=== PATIENT | female | born 1950 | race Caucasian/White ===

== ENCOUNTER 2020-02-25 15:56 | Outpatient (CLI) | payer MEDICARE, SELFPAY ==
--- NOTE | ~2020-02-25 | MM_ITS ---
EXAMINATION: MM screening [facility] BI w garo HISTORY: Screening mammogram TECHNIQUE: Craniocaudal and mediolateral oblique 3-D tomosynthesis images were obtained and synthetic 2-D images were generated. CAD analysis was submitted and interpreted. COMPARISON: [id number] 08/08/2017, 06/17/2016 BREAST PARENCHYMAL COMPOSITION: There are scattered areas of fibroglandular density. FINDINGS: There is no evidence of suspicious mass, calcification, or architectural distortion to sugg est malignancy in either breast. There has been no suspicious interval change. IMPRESSION: 1. No mammographic evidence of malignancy. 2. Recommend routine screening mammography in one year. BI-RADS Category 1: Negative Reviewed, dictated and finalized at location A.
== END 2020-02-25 15:57 | disposition home or self-care (01) ==
PROVIDERS: PCP Nurse Practitioner Family; Visit Provider Nurse Practitioner Family
DX: Z12.31 Encounter for screening mammogram for malignant neoplasm of breast (principal)
CPT/HCPCS: 77063; 77067

== ENCOUNTER 2021-07-06 10:45 | Outpatient (CLI) | payer MEDICARE, SELFPAY ==
--- NOTE | ~2021-07-06 | MM_ITS ---
EXAMINATION: MM screening [facility] BI w garo HISTORY: Screening mammogram TECHNIQUE: Craniocaudal and mediolateral oblique 3-D tomosynthesis images were obtained and synthetic 2-D images were generated. CAD analysis was submitted and interpreted. COMPARISON: 02/25/2020, 01/21/2019, 08/08/2017 BREAST PARENCHYMAL COMPOSITION: There are scattered areas of fibroglandular density. FINDINGS: There is no evidence of suspicious mass, calcification, or architectural distortion to sugg est malignancy in either breast. There has been no suspicious interval change. IMPRESSION: 1. No mammographic evidence of malignancy. 2. Recommend routine screening mammography in one year. BI-RADS Category 1: Negative Reviewed, dictated and finalized at location A. 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
== END 2021-07-06 10:46 | disposition home or self-care (01) ==
LOC: ANHIMG 10:48
PROVIDERS: PCP Nurse Practitioner Family; Visit Provider Nurse Practitioner Family
DX: Z12.31 Encounter for screening mammogram for malignant neoplasm of breast (principal)
CPT/HCPCS: 77063; 77067

== ENCOUNTER 2022-07-09 17:26 | Inpatient (IN) | payer MEDICARE, SELFPAY ==
--- NOTE | ~2022-07-09 | XR_ITS ---
XR surgery orthopedic 07/11/2022 13:06 Indication: Right hip pinning. Procedure: 2 fluoroscopic images of the right hip. 5 minutes 41 seconds of fluoroscopy time. Comparison: 07/09/2022 Findings: There are 3 screws transfixing the right femoral subcapital fracture which remains in stabl e alignment. No significant soft tissue abnormality. Impression: 1: Stable alignment of right femoral subcapital fracture status post internal fixation with 3 femoral neck screws. Reviewed, dictated and finalized at location A. LLMENT SERVICES VICE PRESIDENT Impression: 1: Stable alignment of right femoral subcapital fracture status post internal f ixation with 3 femoral neck screws.
--- NOTE | ~2022-07-09 | XR_ITS ---
EXAMINATION: XR chest 1V portable Exam Date/Time: 07/09/2022 18:40 DIGITAL ANALYST HISTORY: R hip fx, pre-op Comparison: 11/05/2008. RESULT: Lines, tubes, and devices: None. Lungs and pleura: Clear. Cardiomediastinal silhouette: Mild arch ectasia, accentuated by mild rotation, otherwise stable. Other: No acute osseous or upper abdominal finding. IMPRESSION: No acute cardiopulmonary process. Reviewed, dictated and finalized at location K. TAL ANALYST
--- NOTE | ~2022-07-09 | XR_ITS ---
EXAM: XR ankle RT 2V DATE: 07/10/2022 12:33 HISTORY: Right ankle pain after fall . COMPARISON: None available. FINDINGS: Decreased mineralization. No fracture or dislocation. No lytic or blastic lesion. Joint sp aces are maintained. Plantar enthesopathy No erosion or periosteal change. Soft tissues within normal limits. IMPRESSION: No acute osseous finding in the right ankle. Reviewed, dictated and finalized at location K. RHANGER SUPERVISOR
--- NOTE | ~2022-07-09 | XR_ITS ---
EXAM: XR hip RT 2V w AP pelvis DATE: 07/09/2022 17:43 HISTORY: FALL OVER BABY GATE, LT HIP PAIN RADIATES DOWN LEG . COMPARISON: None available. FINDINGS: Intact cannulated screws in the left hip. Normal mineralization. Subcapital right femoral neck fracture. No lytic or blastic lesion. Degenerative changes in the lower lumbar spine and bilater al hips. No erosion or periosteal change. Soft tissues within normal limits. IMPRESSION: Subcapital right femoral neck fracture. Reviewed, dictated and finalized at location K. RETORT OPERATOR
[2022-07-09 17:20] VITALS: BP 138/85; PULSE 91; RESP 16; TEMP 36.9; O2SAT 96
--- NOTE | 2022-07-09 18:05 | ED.LOWEXIN ---
HPI - Extremity Injury (Lower) General Chief Complaint: Extremity Injury, Lower <INES Brice Last Filed: 07/09/22 20:24> Stated Complaint: FALL HIP PAIN <INES Brice Last Filed: 07/09/22 20:24> Time Seen by Provider: 07/09/22 17:32 <INES Brice Last Filed: 07/09/22 20:24> Source: patient <INES Brice Last Filed: 07/09/22 20:24> Mode of arrival: EMS <INES Brice Last Filed: 07/09/22 20:24> Limitations: no limitations <INES Brice Last Filed: 07/09/22 20:24> History of Present Illness HPI Narrative: Patient is a 71 y/o female who presents to the ED via EMS with c/o R hip pain. Patient reports she tripped and fell over a baby gate yesterday while visiting family in [place]. She landed onto her right hip. Denied any head injury or LOC. She was able to ambulate afterwards, but had pain with this. She assumed she just bruised her hip. Today, she had increasing pain, difficulty ambulating, getting throughout her house. EMS was then called. Patient denies any numbness, tingling. History of previous left hip repair 2020, which was performed in [place]. <INES Brice Last Filed: 07/09/22 20:24> Related Data Home Medications: Home Medications Medication Instructions Recorded Confirmed alprazolam 0.5 mg tablet 0.5 mg PO QHS PRN 09/01/21 09/01/21 fluoxetine 20 mg capsule 20 mg PO DAILY 09/01/21 09/01/21 levothyroxine 88 mcg capsule 88 mcg PO DAILY 09/01/21 09/01/21 loratadine 10 mg tablet (Claritin) 10 mg PO DAILY 09/01/21 09/01/21 pantoprazole 40 mg tablet,delayed 40 mg PO QAM 09/01/21 09/01/21 release pravastatin 20 mg tablet 20 mg PO DAILY 09/01/21 09/01/21 zolpidem 5 mg tablet 5 mg PO QHS PRN 09/01/21 09/01/21 <Crystal Santiago PA-C - Last Filed: 07/09/22 20:24> Allergies/Adverse Reactions: Allergies Allergy/AdvReac Type Severity Reaction Status Date / Time No Known Allergies Allergy Mild Verified 10/27/21 12:56 <Crystal Santiago PA-C - Last Filed: 07/09/22 20:24> Review of Systems Review of Systems: CONSTITUTIONAL: Denies fever, chills, or sweats. CARDIOVASCULAR: Denies chest pain. RESPIRATORY: Denies dyspnea. GASTROINTESTINAL: Denies abdominal pain, nausea, vomiting. MUSCULOSKELETAL: Reports R hip pain. NEUROLOGIC: Denies HI, LOC, headache, numbness, or weakness. <Crystal Santiago PA-C - Last Filed: 07/09/22 20:24> All systems reviewed & are unremarkable except as noted in HPI and below <Crystal Santiago PA-C - Last Filed: 07/09/22 20:24> [facility] Past Medical History Medical History: Medical History (Updated 07/09/22 @ 19:06 by Crystal Santiago PA-C) Anxiety Asthma GERD (gastroesophageal reflux disease) HLD (hyperlipidemia) Thyroid disorder <Crystal Santiago PA-C - Last Filed: 07/09/22 20:24> Surgical History Surgical History: Surgical History History of femur fracture February 2021 pinning left femoral neck fracture in [place] History of surgery on left wrist ORIF 2007 <Crystal Santiago PA-C - Last Filed: 07/09/22 20:24> Family History Family History: Family History Other Heart disease <Crystal Santiago PA-C - Last Filed: 07/09/22 20:24> Social History Social History: Social History 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
--- NOTE | 2022-07-09 18:21 | ECG_ITS ---
Measurements Intervals [place] Rate: 78 P: 27 CA: 159 QRS: 28 QRSD: 86 T: 48 QT: 353 QTc: 404 Interpretive Statements SINUS RHYTHM BASELINE ARTIFACT- I, II, III, AVR, AVL, AVF, V1 NORMAL ECG NO PREVIOUS ECG AVAILABLE FOR COMPARISON Electronically Signed On 07-09-2022 22:08:09 JUICE BAR TEAM MEMBER by Manny Marroquin D.O.
[2022-07-09] MEDS: MORPHINE SULFATE (*CRX) 2 MG/ML INJ IV PUSH (18:24)
[2022-07-09] MEDS: ONDANSETRON INJ 4 MG/2 ML VIAL IV PUSH (18:24)
[2022-07-09 18:41] LABS: Basophils Percent Auto 0.4 % (0.2-1.2); Eosinophils Absolute Auto 0.2 K/mm3 (0-0.3); Hematocrit 35.6 % (37.0-47.0); Hemoglobin 11.8 g/dL (12.0-15.0); Immature Granulocyte Absolute 0.04 K/mm3 (0.00-0.031); Immature Granulocyte Percent A 0.4 % (0-0.5); Lymphocytes Absolute Auto 1.54 K/mm3 (0.9-3.2); Lymphocytes Percent Auto 14.2 % (18.3-44.2); Mean Corpuscular HGB Conc 33.1 g/dl (32-36); Mean Corpuscular Hemoglobin 30.7 pg (26-34); Mean Corpuscular Volume 92.7 fl (80-100); Mean Platelet Volume 10.1 fl (7.4-10.4); Monocytes Absolute Auto 0.8 K/mm3 (0.1-0.6); Monocytes Percent Auto 7.5 % (2.6-8.5); Neutrophils Absolute Auto 8.2 K/mm3 (1.3-6.7); Neutrophils Percent Auto 75.5 % (45.5-73.1); Platelet Count Result 176 k/mm3 (150-375); Red Blood Count 3.84 M/mm3 (4.2-5.4); Red Cell Distribution Width 12.3 % (11.5-14.5); White Blood Count 10.8 K/mm3 (4.5-10.0)
[2022-07-09 18:51] LABS: Alanine Aminotransferase 24 U/L (6-35); Albumin Level 3.8 g/dL (3.5-5.1); Alkaline Phosphatase 65 U/L (38-126); Anion Gap 7 mmol/L (8-16); Aspartate Amino Transferase 28 U/L (14-36); Bilirubin,Total 1.3 mg/dL (0.2-1.3); Blood Urea Nitrogen 13 mg/dL (7-17); Calcium 8.4 mg/dL (8.4-10.2); Carbon Dioxide 26 mmol/L (22-30); Chloride 105 mmol/L (98-107); Estimated CRCL calculation 50 ml/min; Estimated Glomerular Filt Rate > 60; Glucose 107 mg/dL (65-110); Potassium 3.6 mmol/L (3.4-5.0); Sodium 138 mmol/L (137-145)
[2022-07-09 18:52] LABS: INR 1.1; Prothrombin Time 13.8 Seconds (11.1-14.7)
[2022-07-09 18:53] LABS: Partial Thromboplastin Time 29.2 SECONDS (22.3-36.8)
--- NOTE | 2022-07-09 19:05 | PM.IMHP ---
H&P: HPI History of Present Illness Date/Time: 07/09/22 19:05 Chief Complaint: Right hip pain Narrative: This is a 71-year-old female patient who has a history of anxiety came to the emergency room with complaints of right hip pain. The patient was in [place] yesterday when she was trying to get over a baby gate when she fell and landed on her right hip. She was having difficulty ambulating but was still able to afterwards. However the pain was severe. She assumed that she just bruised her right hip. Today she had increased pain and difficulty ambulating. The patient was not able to ambulate through house. EMS was activated. She has a history of having a previous left hip repair in 2020 in [place]. X-ray of the hip and pelvis was read as a subcapital right femoral neck fracture. Dr. Lucia has been consulted. She was given Zofran and morphine in the emergency room. Her white count was noted to be 10.8. Her H&H is 11.8 and 35.6. She was found to be negative for influenza A/B and COVID. Her alcohol level was less than 10. The patient is being admitted to observation status on the date of service of 07/09/2022. Review of Systems Review of Systems: See HPI All systems reviewed & are unremarkable except as noted in HPI and below Constitutional: Constitutional: Reports as per HPI and Reports no additional constitutional complaints Eyes: Eyes: Reports as per HPI and Reports no additional eye complaints ENT: Reports system reviewed and no additional complaints, except as documented and Reports Normal hearing present Cardiovascular: Cardiovascular: Reports no additional cardiovascular complaints Respiratory: Respiratory: Reports no additional respiratory complaints and Reports no additional respiratory complaints Gastrointestinal: Gastrointestinal: Reports as per HPI and Reports no additional gastrointestinal complaints Musculoskeletal: Musculoskeletal: Reports no additional musculoskeletal complaints Integumentary/Breasts: Skin/Breast: Reports system reviewed and no additional complaints, except as docu and Reports as per HPI Neurologic: Reports system reviewed and no additional complaints, except as documented, Reports as per HPI and Reports Normal hearing present Psychiatric: Psychiatric: Reports no additional psychiatric complaints and Reports as per HPI Endocrine: Endocrine: Reports no additional endocrine complaints Hematologic/Lymphatic: Hematologic/Lymphatic: Reports no additional hematologic/lymphatic complaints Allergic/Immunologic: Allergic/Immunologic: Reports no additional allergic/immunologic complaints [facility] Past Medical History Medical History (Updated 07/09/22 @ 23:52 by Steffi Guerrero NP) Anxiety Asthma GERD (gastroesophageal reflux disease) HLD (hyperlipidemia) Thyroid disorder Surgical History Surgical History History of femur fracture February 2021 pinning left femoral neck fracture in [place] History of surgery on left wrist ORIF 2007 Family History Family History Father Heart disease Beena Gehrig disease Mother Social History Social History (Updated 07/09/22 @ 23:47 by Steffi Guerrero NP) Social History: 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 She is lifelong nonsmoker. She denies any alcohol marijuana or illicit drugs. She stated that she wanted her children to be her durable power health care attorney for healthcare. Code status full code Smoking status: Never smoker Alcohol intake: never Substance use: never Lack of Transportation: No Lack of Food: Never True Current Housing: I Have Housing Concerned About Future Housing: No Difficulty Paying Gas/Electric Bills: No Difficulty Paying for Meds: No Currently Unemployed: No Education: High School Diploma/GED Di
[2022-07-09 19:16] LABS: Ethanol < 10 mg/dL (<10)
[2022-07-09 19:17] LABS: Influenza A QL RT-PCR Negative (Negative); Influenza B QL RT-PCR Negative (Negative); SARS-CoV-2 RNA PCR Negative
[2022-07-09 19:45] VITALS: BP 128/76; PULSE 92; RESP 16; O2SAT 98
[2022-07-09 20:31] VITALS: BP 131/49; PULSE 82; RESP 18; TEMP 36.4; O2SAT 94; BMI 24.7
--- NOTE | 2022-07-09 20:31 | ADMGEN ---
This patient, Kathryn Austin, was admitted to Medical Room 345-. Patient/family oriented to hospital policies and general routines including ID bracelet, bed and alarms, visiting hours, pain management, procedures, bathroom and other care routines, personal items, smoking policy, room service/diet, and visiting hours. Information on how to activate the Rapid Response Team has been discussed. Patient/Family are encouraged to report perceived risks to care and to ask questions if they do not understand what they are told or what they should do.
[2022-07-09] MEDS: MORPHINE SULFATE (*CRX) 4 MG/ML INJ IV PUSH (22:17)
[2022-07-10] MEDS: LORATADINE 10 MG TABLET PO (03:49)
[2022-07-10] MEDS: PRAVASTATIN SODIUM 20 MG TABLET PO ×2 (03:49→19:58)
[2022-07-10] MEDS: PANTOPRAZOLE 40 MG TABLET PO ×2 (03:50→19:58)
[2022-07-10] MEDS: LEVOTHYROXINE SODIUM 75 MCG TABLET PO ×2 (03:50→19:58)
[2022-07-10] MEDS: MORPHINE SULFATE (*CRX) 4 MG/ML INJ IV PUSH ×3 (03:52→22:55)
[2022-07-10 05:50] VITALS: BP 127/58; PULSE 80; RESP 18; TEMP 36.6; O2SAT 95
[2022-07-10 06:29] LABS: Basophils Percent Auto 0.4 % (0.2-1.2); Eosinophils Absolute Auto 0.4 K/mm3 (0-0.3); Eosinophils Percent Auto 3.6 % (0-4.4); Hematocrit 33.2 % (37.0-47.0); Immature Granulocyte Absolute 0.05 K/mm3 (0.00-0.031); Immature Granulocyte Percent A 0.5 % (0-0.5); Lymphocytes Absolute Auto 1.68 K/mm3 (0.9-3.2); Lymphocytes Percent Auto 15.7 % (18.3-44.2); Mean Corpuscular HGB Conc 33.1 g/dl (32-36); Mean Corpuscular Hemoglobin 31.1 pg (26-34); Mean Corpuscular Volume 93.8 fl (80-100); Mean Platelet Volume 9.6 fl (7.4-10.4); Monocytes Percent Auto 9.4 % (2.6-8.5); Neutrophils Absolute Auto 7.5 K/mm3 (1.3-6.7); Neutrophils Percent Auto 70.4 % (45.5-73.1); Platelet Count Result 151 k/mm3 (150-375); Red Blood Count 3.54 M/mm3 (4.2-5.4); Red Cell Distribution Width 12.5 % (11.5-14.5); White Blood Count 10.7 K/mm3 (4.5-10.0)
[2022-07-10 06:54] LABS: Alanine Aminotransferase 21 U/L (6-35); Albumin Level 3.6 g/dL (3.5-5.1); Alkaline Phosphatase 55 U/L (38-126); Anion Gap 5 mmol/L (8-16); Aspartate Amino Transferase 25 U/L (14-36); Bilirubin,Total 1.3 mg/dL (0.2-1.3); Blood Urea Nitrogen 15 mg/dL (7-17); Calcium 7.9 mg/dL (8.4-10.2); Carbon Dioxide 27 mmol/L (22-30); Chloride 106 mmol/L (98-107); Estimated CRCL calculation 52 ml/min; Estimated Glomerular Filt Rate > 60; Glucose 101 mg/dL (65-110); Magnesium 2.1 mg/dL (1.6-2.3); Potassium 3.7 mmol/L (3.4-5.0); Sodium 138 mmol/L (137-145)
--- NOTE | 2022-07-10 11:00 | PM.IMPN ---
Progress Note: A&P Assessment and Plan (1) Fall: Code(s): W19.XXXA - Unspecified fall, initial encounter Status: Acute Assessment and Plan: Suffered mechanical fall at her son's home on 07/08, tripped over a baby gate. No loss of consciousness. No head injury. No precipitating symptoms. Implement fall precautions will obtain right ankle x-ray given complaints of right ankle discomfort following fall (2) Closed subcapital fracture of neck of right femur: Qualifiers: Encounter type: initial encounter Qualified Code(s): S72.011A - Unspecified intracapsular fracture of right femur, initial encounter for closed fracture Code(s): S72.011A - Unspecified intracapsular fracture of right femur, initial encounter for closed fracture Status: Acute Assessment and Plan: Secondary to fall hip/pelvis x-ray showed subcapital right femoral neck fracture appreciate orthopedic surgery consultation analgesics available as needed will need PT/ OT following orthopedic surgery evaluation (3) Thyroid disorder: Code(s): E07.9 - Disorder of thyroid, unspecified Status: Chronic Assessment and Plan: TSH is within normal limits continue levothyroxine (4) Anxiety: Code(s): F41.9 - Anxiety disorder, unspecified Status: Chronic Assessment and Plan: mood is stable at this time continue home Xanax 0.5 mg t.i.d. p.r.n. (5) Normocytic anemia: Code(s): D64.9 - Anemia, unspecified Status: Acute Assessment and Plan: no prior labs to establish baseline. Hemoglobin is very mildly decreased continue to monitor H&H will need postoperative monitoring if surgical intervention is planned Subjective Date/time seen: 07/10/22 11:00 Interval history: Date of service: 07/10/2022 Kathryn Austin is a 71-year-old female with a history of asthma, hyperlipidemia, hypothyroidism, GERD, anxiety, osteopenia, left femoral fracture following fall s/p left hip pinning in February 2021 who is seen in follow-up for right hip fracture secondary to fall. She complains 7/10 right hip pain today. Describes as a shooting pain down the thigh if she is trying to move around. When she is at rest she feels more comfortable. She does endorse some ankle pain which she rates as 6/10. She is able to move the ankle but she states it feels like a pulled tendon. She denies nausea, vomiting, fever, chills, shortness breath, chest pain, abdominal pain. She had a bowel movement yesterday. She denies any urinary symptoms. Review of Systems Review of Systems: All systems reviewed & are unremarkable except as noted in HPI and below Exam Narrative: General: Well-nourished, well-appearing 71-year-old female, sitting up in bed, comfortable, NARD Neuro: awake, alert and oriented x4, speech clear, no focal neuro deficits noted HEENMT: normocephalic, atraumatic, EOMI, sclerae anicteric, moist oral mucosa Respiratory: clear to auscultation bilaterally, nonlabored breathing Cardio: regular rate, regular rhythm with S1-S2 Abdomen: nondistended, normoactive bowel sounds, soft, nontender to palpation Extremities: right hip nontender to palpation, right leg is externally rotated, full passive ROM right ankle, bilateral lower extremities without edema, erythema, or tenderness to palpation, DP pulses 2+ bilaterally Skin: no rashes or lesions, warm and dry Psych: appropriate mood and affect, judgment and insight intact Objective Data Vital Signs Vital Signs: Vital Signs - 24 hr 07/09/22 17:20 07/09/22 19:45 07/09/22 20:31 Temperature 98.5 F 97.5 F L Pulse Rate 91 92 82 Respiratory Rate 16 16 18 Blood Pressure 138/85 128/76 131/49 L Pulse Oximetry 96 98 94 Oxygen Delivery 07/09/22 20:29 07/10/22 05:50 07/10/22 08:00 Temperature 97.8 F Pulse Rate 80 Respiratory Rate 18 Blood Pressure 127/58 L Pulse Oximetry 95 Oxyge
[2022-07-10 14:00] VITALS: BP 104/50; PULSE 85; RESP 20; TEMP 36.5; O2SAT 92
--- NOTE | 2022-07-10 14:03 | PM.CNOR ---
Assessment and Plan Assessment and plan (1) Closed subcapital fracture of neck of right femur: Qualifiers: Encounter type: initial encounter Qualified Code(s): S72.011A - Unspecified intracapsular fracture of right femur, initial encounter for closed fracture Code(s): S72.011A - Unspecified intracapsular fracture of right femur, initial encounter for closed fracture Status: Acute Assessment and Plan: STELLA IS ADMITTED FOR A RIGHT FEMORAL NECK FRACTURE. XRAYS SHOW VALGUS IMPACTED FRACTURE. SHE WILL REQUIRE CLOSED REDUCTION AND PERCUTANEOUS PINNG. WE WILL DO THIS SOMETIME TOMORROW. HISTORY, EXAM AND RADIOGRAPHS REVIEWED WITH THE PATIENT. REFERRING PHYSICIAN RECORDS AND IMAGES REVIEWED. CONDITION, NATURE, ETIOLOGY AND COURSE OF NATURAL HISTORY REVIEWED. CONSERVATIVE AND OPERATIVE TREATMENT OPTIONS REVIEWED WELL THE RISKS AND BENEFITS OF EACH. DISCUSSED NONOPERATIVE AND OPERATIVE TREATMENT OPTIONS WITH THE PATIENT. THE PATIENT'S QUESTIONS WERE ANSWERED. THE PATIENT DESIRES OPERATIVE TREATMENT. RISKS OF SURGERY INCLUDING BUT NOT LIMITED TO NEUROVASCULAR DAMAGE, WOUND COMPLICATIONS, BLOOD CLOT, PULMONARY EMBOLUS, STROKE, [place], ANESTHETIC RISKS UP TO AND INCLUDING WERE REVIEWED. CONTINUED PAIN AND POSSIBLE DYSFUNCTION WERE EXPLAINED. NO GUARANTEES WERE OFFERED. THE PATIENT UNDERSTANDS AND WISHES TO PROCEED. History of Present Illness HPI Consult date: 07/10/22 Chief complaint: R subcapital femoral neck fracture, GLF Narrative: STELLA IS HERE FOR EVALUATION OF HER RIGHT HIP INJURY. SHE WAS STEPPING OVER A BABY GUARD AND TRIPPED AND INJURED HER RIGHT HIP. SHE WAS SEEN IN [place] ED AND DIAGNOSED WITH A RIGHT FEMORAL NECK FRACTURE. SHE IS REALITIVELY COMFORTBLE WHILE IN BED. SHE DENIES ANY OTHER EXTREMITY PAIN OR BACK OR NECK PAIN. 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 She is lifelong nonsmoker. She denies any alcohol marijuana or illicit drugs. She stated that she wanted her children to be her durable power trust and estates attorney for healthcare. 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
[2022-07-10 20:28] VITALS: BP 125/52; PULSE 85; RESP 18; TEMP 36.7; O2SAT 94
[2022-07-11] VITALS (14 sets, daily range): BP systolic 110–140; BP diastolic 45–73; PULSE 67–88; RESP 8–21; TEMP 36.3–36.8; O2SAT 90–100
[2022-07-11] MEDS: MORPHINE SULFATE (*CRX) 4 MG/ML INJ IV PUSH (02:58)
[2022-07-11 06:16] LABS: Hematocrit 34.2 % (37.0-47.0); Hemoglobin 11.1 g/dL (12.0-15.0); Mean Corpuscular HGB Conc 32.5 g/dl (32-36); Mean Corpuscular Hemoglobin 30.8 pg (26-34); Mean Platelet Volume 10.4 fl (7.4-10.4); Platelet Count Result 165 k/mm3 (150-375); Red Cell Distribution Width 12.3 % (11.5-14.5); White Blood Count 9.5 K/mm3 (4.5-10.0)
[2022-07-11 06:33] LABS: Anion Gap 7 mmol/L (8-16); Blood Urea Nitrogen 18 mg/dL (7-17); Calcium 7.8 mg/dL (8.4-10.2); Carbon Dioxide 26 mmol/L (22-30); Chloride 104 mmol/L (98-107); Estimated CRCL calculation 52 ml/min; Estimated Glomerular Filt Rate > 60; Glucose 112 mg/dL (65-110); Potassium 3.6 mmol/L (3.4-5.0); Sodium 137 mmol/L (137-145)
[2022-07-11] MEDS: ALPRAZolam (*CRX) 0.5 MG TABLET PO ×2 (09:01→22:27)
--- NOTE | 2022-07-11 10:38 | PC.NURSE ---
pt to surgery via bed
[2022-07-11] MEDS: LACTATED RINGERS 1,000 ML 30 ML IV CONT (10:45)
--- NOTE | 2022-07-11 11:11 | WPDANESEPPF ---
Anes - Initial Pre Proc Eval Procedure: Operation Date: 07/11/22 12:00 Proposed Procedures p Hip Pinning Cannulated Screws(Right) - David Lucia MD Date/Time: 07/11/22 11:11 Surgeon: Kaila Jane PA-C Pre Op Diagnosis: R subcapital femoral neck fracture, GLF Patient Data Age: 71 Gender: F Height: 1.65 m Weight: 67.3 kg Last Vital Signs Temp 36.4 C L 07/11/22 10:56 Pulse 72 07/11/22 10:56 Resp 16 07/11/22 10:56 BP 112/55 L 07/11/22 10:56 Pulse Ox 93 07/11/22 10:56 O2 Del Method Room Air 07/11/22 10:56 Allergies Allergy/AdvReac Type Severity Reaction Status Date / Time No Known Allergies Allergy Mild Verified 07/11/22 10:52 Home Medications Medication Instructions Recorded Confirmed Type alprazolam 0.5 mg tablet 0.5 mg PO TID PRN Anxiety 09/01/21 07/09/22 History loratadine 10 mg tablet (Claritin) 10 mg PO DAILY 09/01/21 07/09/22 History pantoprazole 40 mg tablet,delayed 40 mg PO QAM 09/01/21 07/09/22 History release pravastatin 20 mg tablet 20 mg PO QHS 09/01/21 07/09/22 History zolpidem 5 mg tablet 5 mg PO QHS PRN Insomnia 09/01/21 07/09/22 History levothyroxine 75 mcg tablet 75 mcg PO QAM 07/09/22 07/09/22 History Laboratory Tests 07/11/22 07/11/22 05:57 05:57 WBC 9.5 K/mm3 K/mm3 (4.5-10.0) RBC 3.60 M/mm3 L M/mm3 (4.2-5.4) Hgb 11.1 g/dL L g/dL (12.0-15.0) Hct 34.2 % L % (37.0-47.0) MCV 95.0 fl fl (80-100) MCH 30.8 pg pg (26-34) MCHC 32.5 g/dl g/dl (32-36) RDW 12.3 % % (11.5-14.5) Plt Count 165 k/mm3 k/mm3 (150-375) MPV 10.4 fl fl (7.4-10.4) Sodium 137 mmol/L mmol/L (137-145) Potassium 3.6 mmol/L mmol/L (3.4-5.0) Chloride 104 mmol/L mmol/L (98-107) Carbon Dioxide 26 mmol/L mmol/L (22-30) Anion Gap 7 mmol/L L mmol/L (8-16) BUN 18 mg/dL H mg/dL (7-17) Creatinine 0.80 mg/dL mg/dL (0.7-1.0) Estim Creat Clear Calc 52 ml/min ml/min Estimated GFR > 60 (59 - ) Glucose 112 mg/dL H mg/dL (65-110) Calcium 7.8 mg/dL L mg/dL (8.4-10.2) ECG: Date of Service: 07/09/22 Procedure(s): [place] 12 lead EKG Accession Number(s): [id number] cc: ~ ? Measurements Intervals? [place]? Rate: ? 78 ? P:? 27 MD: ? 159? QRS:? 28 QRSD: ? 86 ? T:? 48 QT: ? 353? QTc:? 404? Interpretive Statements SINUS RHYTHM BASELINE ARTIFACT- I, II, III, AVR, AVL, AVF, V1 NORMAL ECG NO PREVIOUS ECG AVAILABLE FOR COMPARISON Electronically Signed On 07-09-2022 22:08:09 INSURANCE UNDERWRITING ASSISTANT by Manny Marroquin D.O. Patient hx anesthesia problems: none Family hx anesthesia problems: none Results Review: All pre-operative results and documents have been reviewed as part of the pre-operative evaluation. 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 She is lifelong nonsmoker. She denies any alcohol marijuana or illicit drugs. She stated
--- NOTE | 2022-07-11 11:24 | PM.IMPN ---
Progress Note: A&P Assessment and Plan (1) Fall: Code(s): W19.XXXA - Unspecified fall, initial encounter Status: Acute Assessment and Plan: Suffered mechanical fall at her son's home on 07/08, tripped over a baby gate. No loss of consciousness. No head injury. No precipitating symptoms. Ankle x-ray with no acute osseous findings Fall precautions (2) Closed subcapital fracture of neck of right femur: Qualifiers: Encounter type: initial encounter Qualified Code(s): S72.011A - Unspecified intracapsular fracture of right femur, initial encounter for closed fracture Code(s): S72.011A - Unspecified intracapsular fracture of right femur, initial encounter for closed fracture Status: Acute Assessment and Plan: Secondary to fall hip/pelvis x-ray showed subcapital right femoral neck fracture appreciate orthopedic surgery consultation planning for surgical repair this afternoon analgesics available as needed will need PT/ OT postoperatively DVT prophylaxis deferred to orthopedic surgery. SCDs for now. (3) Thyroid disorder: Code(s): E07.9 - Disorder of thyroid, unspecified Status: Chronic Assessment and Plan: TSH is within normal limits continue levothyroxine (4) Anxiety: Code(s): F41.9 - Anxiety disorder, unspecified Status: Chronic Assessment and Plan: mood is stable at this time continue home Xanax 0.5 mg t.i.d. p.r.n. (5) Normocytic anemia: Code(s): D64.9 - Anemia, unspecified Status: Acute Assessment and Plan: no prior labs to establish baseline. Hemoglobin is very mildly decreased continue to monitor H&H. Remaining stable. will need postoperative monitoring if surgical intervention is planned Subjective Date/time seen: 07/11/22 11:24 Interval history: Date of service: 07/11/2022 Kathryn Austin is a 71-year-old female with a history of asthma, hyperlipidemia, hypothyroidism, GERD, anxiety, osteopenia, left femoral fracture following fall s/p left hip pinning in February 2021 who is seen in follow-up for right hip fracture secondary to fall. She is doing well today. Her hip pain is well controlled. She only notices pain if she has to move around. Her ankle still feels slightly stiff but overall much improved and she is able to move it without any pain. She denies shortness breath, cough, chest pain, urinary symptoms, dizziness, lightheadedness. Review of Systems Review of Systems: All systems reviewed & are unremarkable except as noted in HPI and below Exam Narrative: General: well-nourished, well-appearing 71-year-old female, sitting up in bed, comfortable, NARD Neuro: awake, alert and oriented x4, speech clear, no focal neuro deficits noted HEENMT: normocephalic, atraumatic, EOMI, sclerae anicteric, moist oral mucosa Respiratory: clear to auscultation bilaterally, nonlabored breathing Cardio: regular rate, regular rhythm with S1-S2 Abdomen: nondistended, normoactive bowel sounds, soft, nontender to palpation Extremities: right hip nontender to palpation, full passive ROM right ankle without edema or erythma, bilateral lower extremities without edema, erythema, or tenderness to palpation, DP pulses 2+ bilaterally Skin: no rashes or lesions, warm and dry Psych: appropriate mood and affect, judgment and insight intact Objective Data Vital Signs Vital Signs: Vital Signs - 24 hr 07/10/22 14:00 07/10/22 20:28 07/11/22 05:02 Temperature 97.7 F 98.1 F 97.3 F L Pulse Rate 85 85 75 Respiratory Rate 20 18 18 Blood Pressure 104/50 L 125/52 L 110/46 L Pulse Oximetry 92 94 92 Oxygen Delivery 07/11/22 10:56 Temperature 97.5 F L Pulse Rate 72 Respiratory Rate 16 Blood Pressure 112/55 L Pulse Oximetry 93 Oxygen Delivery Room Air Intake/Output Intake/Output: Intake & Output 07/08/22 07/09/22 07/10/22 07/11/22 23:59 23:59 23:59 23:59 In
--- NOTE | 2022-07-11 12:07 | WPDHPUPDATE1 ---
History and Physical Update Update Date/Time: 07/11/22 12:07 History and Physical has been reviewed, including an updated exam of the patient. There are NO changes in the patient's condition. Risks, benefits, and alternatives have been discussed and questions answered. Patient agrees to proceed with procedure.
[2022-07-11] MEDS: TRANEXAMIC ACID 1,000MG/ISO100 1,000 MG/100 ML BAG 200 MG IVPB (12:10)
[2022-07-11] MEDS: ceFAZolin 2 GM/D5W 50 ML 2 GM/50 ML BAG IVPB ×2 (12:13→20:34)
--- NOTE | 2022-07-11 14:53 | W.PM.PROC2 ---
Procedure Note - Detailed Date of Procedure 07/11/22 Pre-op Diagnosis R femoral neck fracture Post-op Diagnosis Same Procedure Performed PERCUTANEOUS PINNING RIGHT FEMORAL NECK FRACTURE Surgeon David Lucia MD Anesthesia General Description of Procedure THE PATIENT WAS TAKEN TO THE OPERATING ROOM AND PLACED UNDER GENERAL ANESTHESIA. THE PATIENT WAS PLACED ON A FRACTURE TABLE. THE RIGHT LOWER EXTREMITY WAS PREPPED AND DRAPED IN THE STERILE FASHION FROM THE KNEE TO THE ILIAC CREST. THE INCISION WAS MADE ON THE LATERAL HIP JUST DISTAL TO THE GREATER TROCHANTER DOWN TO THE BONE. BLEEDERS WERE CAUTERIZED. 3 GUIDE PINS WERE PLACED THROUGH THE FEMORAL NECK AND PASSED THE FRACTURE SITE AND IN TO THE SUBCHONDRAL BONE OF THE FEMORAL HEAD. THREE 7.3 CANNULATED SCREWS WERE PLACED OVER THE GUIDE PINS AND THESE WERE SHOWN TO BE IN GOOD POSITION PER FLUOROSCOPY ON BOTH THE AP AND LATERAL VIEWS. ALL SCREWS HAD EXCELLENT BITES. THE WOUND WAS WASHED WELL. THE DEEP FASCIAL LAYER WAS APPROXIMATED WITH #1 VICRYL SUTURE, THE SUBCUTANEOUS LAYER WITH 2-0 VICRYL AND THE SKIN WAS APPROXIMATED WITH 2-0 QUIL AND DERMABOND. A STERILE DRESSING WAS PLACED. THE PATIENT WAS EXTUBATED AND SENT TO RECOVERY ROOM Estimated Blood Loss -25.0 Urine Output 425 Drains No Complications No immediate complications Condition Stable Disposition PACU
--- NOTE | 2022-07-11 15:09 | PC.NURSE ---
pt returned from surgery, reviewed plan of care, doing well, denies pain
[2022-07-11] MEDS: SENNA/DOCUSATE SODIUM TABLET 2 TAB PO (20:34)
[2022-07-11] MEDS: ASPIRIN 325 MG ENTERIC TABLET PO (20:35)
[2022-07-11] MEDS: PANTOPRAZOLE 40 MG TABLET PO (20:35)
[2022-07-11] MEDS: LEVOTHYROXINE SODIUM 75 MCG TABLET PO (20:35)
[2022-07-11] MEDS: FAMOTIDINE 20 MG TABLET PO (20:35)
[2022-07-11] MEDS: LORATADINE 10 MG TABLET PO (20:35)
[2022-07-11] MEDS: PRAVASTATIN SODIUM 20 MG TABLET PO (20:35)
[2022-07-12 00:45] VITALS: BP 128/48; PULSE 70; RESP 20; TEMP 36.6; O2SAT 100
[2022-07-12] MEDS: HYDROcodone/acetaminophen (*CRX) 7.5-325 MG TABLET 2 TAB PO ×2 (04:24→19:42)
[2022-07-12] MEDS: ceFAZolin 2 GM/D5W 50 ML 2 GM/50 ML BAG IVPB ×2 (04:25→13:47)
[2022-07-12 04:45] VITALS: BP 131/49; PULSE 78; RESP 20; TEMP 36.6; O2SAT 96
[2022-07-12 06:46] LABS: Basophils Percent Auto 0.2 % (0.2-1.2); Eosinophils Percent Auto 0.1 % (0-4.4); Hematocrit 32.9 % (37.0-47.0); Hemoglobin 11.1 g/dL (12.0-15.0); Immature Granulocyte Absolute 0.07 K/mm3 (0.00-0.031); Immature Granulocyte Percent A 0.6 % (0-0.5); Lymphocytes Absolute Auto 1.34 K/mm3 (0.9-3.2); Lymphocytes Percent Auto 10.7 % (18.3-44.2); Mean Corpuscular HGB Conc 33.7 g/dl (32-36); Mean Corpuscular Hemoglobin 30.1 pg (26-34); Mean Corpuscular Volume 89.2 fl (80-100); Mean Platelet Volume 10.7 fl (7.4-10.4); Monocytes Absolute Auto 1.2 K/mm3 (0.1-0.6); Monocytes Percent Auto 9.2 % (2.6-8.5); Neutrophils Percent Auto 79.2 % (45.5-73.1); Platelet Count Result 189 k/mm3 (150-375); Red Blood Count 3.69 M/mm3 (4.2-5.4); Red Cell Distribution Width 11.6 % (11.5-14.5); White Blood Count 12.6 K/mm3 (4.5-10.0)
[2022-07-12 07:20] LABS: Anion Gap 8 mmol/L (8-16); Blood Urea Nitrogen 16 mg/dL (7-17); Calcium 8.1 mg/dL (8.4-10.2); Carbon Dioxide 25 mmol/L (22-30); Chloride 103 mmol/L (98-107); Estimated CRCL calculation 59 ml/min; Estimated Glomerular Filt Rate > 60; Glucose 124 mg/dL (65-110); Sodium 136 mmol/L (137-145)
[2022-07-12] MEDS: SENNA/DOCUSATE SODIUM TABLET 2 TAB PO ×2 (08:59→20:41)
[2022-07-12] MEDS: CELECOXIB 200 MG CAPSULE PO (08:59)
[2022-07-12] MEDS: ASPIRIN 325 MG ENTERIC TABLET PO ×2 (08:59→20:41)
[2022-07-12] MEDS: FAMOTIDINE 20 MG TABLET PO ×2 (08:59→20:41)
[2022-07-12] MEDS: polyethylene glycoL 3350 17 GM POWD.PACK PO (08:59)
--- NOTE | 2022-07-12 09:46 | PM.PNORT ---
Progress Note: A&P Assessment and Plan (1) Closed subcapital fracture of neck of right femur: Qualifiers: Encounter type: subsequent encounter Fracture healing: with routine healing Qualified Code(s): S72.011D - Unspecified intracapsular fracture of right femur, subsequent encounter for closed fracture with routine healing Code(s): S72.011A - Unspecified intracapsular fracture of right femur, initial encounter for closed fracture Status: Acute Assessment and Plan: POD #1: PERCUTANEOUS PINNING RIGHT FEMORAL NECK FRACTURE Continue PT/OT. NWB. Walker. HIGH FALL RISK. Continue pain control. Ice hip. Protect skin. DVT prophylaxis with Aspirin. SCDs. Incentive Spirometry Use reviewed. Monitor Dressing. Okay to change to Mepilex Silver today. Bowel Regimen. Dispo: Home with Home Health vs SNF pending progress with PT/OT Will arrange for 6 week f/u appt in the outpatient orthopedic clinic. Subjective Subjective Date/Time Seen: 07/12/22 09:46 Post Op day: 1 Interval history: POD #1: PERCUTANEOUS PINNING RIGHT FEMORAL NECK FRACTURE Patient doing well. Working with PT/OT. Up in chair. Review of Systems Review of Systems: All systems reviewed & are unremarkable except as noted in HPI and below Exam Const: General: comfortable and no acute distress Resp: Effort & Inspection: normal respiratory effort Cardio: Rate: regular rate Rhythm: regular rhythm GI: Inspection: non-distended Skin: General skin exam: normal color Other: Incision right hip c/d/i. Surrounding tissue without redness/warmth. Mild swelling consistent with recent surgery. No drainage. Neuro: Cognition (Neuro): normal cognition Speech: normal speech Extrem: Right lower extremity: normal to inspection, normal capillary refill, hip/thigh Details: tenderness Location: of the hip (Thigh soft ) Location: laterally and anteriorly, swelling Location: at the hip, abnormal ROM (limited consistent with recent surgery ) Details: pain with active ROM during and pain with passive ROM during and other (Incision c/d/i. ); no deformity and no unusual warmth, knee Details: normal to inspection; no tenderness and no swelling, lower leg (Negative Leticia's Sign ) Details: normal to inspection and no edema; no tenderness, ankle (+ankle dorsiflexion/plantarflexion) Details: normal to inspection and no edema; no tenderness, no swelling and no ecchymosis and foot Details: normal capillary refill, toes with normal ROM, vascular exam Details: dorsalis pedis pulse present and motor-sensory exam Details: light-touch normal; no tenderness Objective Data Vital Signs Vital Signs: Vital Signs - 24 hr 07/11/22 10:56 07/11/22 13:25 07/11/22 13:40 Temperature 36.4 C L 36.8 C Pulse Rate 72 67 82 Respiratory Rate 16 8 L 10 L Blood Pressure 112/55 L 140/67 136/73 Pulse Oximetry 93 98 100 Oxygen Delivery Room Air Simple Face Mask Simple Face Mask Oxygen Flow Rate 8 8 07/11/22 13:55 07/11/22 14:10 07/11/22 14:25 Temperature Pulse Rate 79 88 81 Respiratory Rate 12 13 14 Blood Pressure 130/71 132/63 134/67 Pulse Oximetry 100 96 94 Oxygen Delivery Simple Face Mask Room Air Room Air Oxygen Flow Rate 8 07/11/22 14:55 07/11/22 15:15 07/11/22 15:37 Temperature 36.4 C 36.4 C Pulse Rate 80 78 77 Respiratory Rate 16 21 H 18 Blood Pressure 125/73 120/61 123/54 L Pulse Oximetry 94 90 93 Oxygen Delivery Room Air Oxygen Flow Rate 07/11/22 16:16 07/11/22 18:28 07/11/22 20:45 Temperature 36.3 C L 36.7 C 36.6 C Pulse Rate 71 76 78 Respiratory Rate 18 17 20 Blood Pressure 130/51 L 113/45 L 131/49 L Pulse Oximetry 95 95 94 Oxygen Delivery Oxygen Flow Rate 07/11/22 20:00 07/12/22 00:45 07/12/22 04:45 Temperature 36.6 C 36.6 C Pulse Rate 78 70 78 Respiratory Rate 20 20 20 Blood Pressure 128/48 L 131/49 L Pulse Oximetry 94 100 96 Oxygen Delivery Room Air Oxygen Flow Rate 07/12/22 08:00 07/12/22 08:00 Te
--- NOTE | 2022-07-12 10:43 | P.PNAN_ITS ---
Anes - Prog Note Post-Op Date/Time: 07/12/22 10:43 Vital Signs: Last Vital Signs Temp 36.6 C 07/12/22 04:45 Pulse 78 07/12/22 04:45 Resp 20 07/12/22 04:45 BP 131/49 L 07/12/22 04:45 Pulse Ox 96 07/12/22 04:45 O2 Del Method Room Air 07/12/22 08:00 O2 Flow Rate 8 07/11/22 13:55 Pain Score (VAS): 0 I/O: Intake & Output 07/11/22 07/12/22 07/12/22 23:59 07:59 15:59 Intake Total 290 50 240 Output Total 150 600 Balance 140 -550 240 Laboratory Tests 07/12/22 06:00 07/12/22 06:00 07/12/22 07/12/22 06:00 06:00 WBC 12.6 H RBC 3.69 L Hgb 11.1 L Hct 32.9 L MCV 89.2 D MCH 30.1 MCHC 33.7 RDW 11.6 Plt Count 189 MPV 10.7 H Immature Gran % (Auto) 0.6 H Neut % (Auto) 79.2 H Lymph % (Auto) 10.7 L [place] % (Auto) 9.2 H Eos % (Auto) 0.1 Baso % (Auto) 0.2 Lymph # (Auto) 1.34 [place] # (Auto) 1.2 H Eos # (Auto) 0.0 Baso # (Auto) 0.0 Abs Immat Gran (auto) 0.07 H Absolute Neuts (auto) 10.0 H Absolute Nucleated RBC 0.0 Nucleated RBC % 0.0 Sodium 136 L Potassium 4.0 Chloride 103 Carbon Dioxide 25 Anion Gap 8 BUN 16 Creatinine 0.70 Estim Creat Clear Calc 59 Estimated GFR > 60 Glucose 124 H Calcium 8.1 L Patient Feedback: Patient satisfied with anesthetic care.
[2022-07-12 12:45] VITALS: BP 116/66; PULSE 74; RESP 20; TEMP 36.3; O2SAT 97
--- NOTE | 2022-07-12 13:04 | PM.IMPN ---
Progress Note: A&P Assessment and Plan (1) Fall: Code(s): W19.XXXA - Unspecified fall, initial encounter Status: Acute Assessment and Plan: Suffered mechanical fall at her son's home on 07/08, tripped over a baby gate. No loss of consciousness. No head injury. No precipitating symptoms. Ankle x-ray with no acute osseous findings Fall precautions (2) Closed subcapital fracture of neck of right femur: Qualifiers: Encounter type: subsequent encounter Fracture healing: with routine healing Qualified Code(s): S72.011D - Unspecified intracapsular fracture of right femur, subsequent encounter for closed fracture with routine healing Code(s): S72.011A - Unspecified intracapsular fracture of right femur, initial encounter for closed fracture Status: Acute Assessment and Plan: Secondary to fall hip/pelvis x-ray showed subcapital right femoral neck fracture appreciate orthopedic surgery consultation underwent percutaneous pinning of right femoral neck fracture on 07/11/[address] Lucia. Tolerated the procedure well and pain is well controlled. Continue PT/OT DVT prophylaxis deferred to orthopedic surgery. Aspirin 325 mg b.i.d. Analgesics available as needed (3) Thyroid disorder: Code(s): E07.9 - Disorder of thyroid, unspecified Status: Chronic Assessment and Plan: TSH is within normal limits continue levothyroxine (4) Anxiety: Code(s): F41.9 - Anxiety disorder, unspecified Status: Chronic Assessment and Plan: mood is stable at this time continue home Xanax 0.5 mg t.i.d. p.r.n. (5) Normocytic anemia: Code(s): D64.9 - Anemia, unspecified Status: Acute Assessment and Plan: no prior labs to establish baseline. Hemoglobin is very mildly decreased continue to monitor H&H postoperative. Remaining stable. Subjective Date/time seen: 07/12/22 13:04 Interval history: Date of service: 07/12/2022 Kathryn Austin is a 71-year-old female with a history of asthma, hyperlipidemia, hypothyroidism, GERD, anxiety, osteopenia, left femoral fracture following fall s/p left hip pinning in February 2021 who is seen in follow-up for right hip fracture secondary to fall. She is pod POD #1. She is doing well with therapy today. She was able to get up to the chair. She has minimal to no hip pain. She only notices it when she does certain specific movements with therapy. She denies nausea, vomiting, fever, or chills. She is tolerating her diet. Denies urinary symptoms. Denies shortness of breath or chest pain. Review of Systems Review of Systems: All systems reviewed & are unremarkable except as noted in HPI and below Exam Narrative: General: well-nourished, well-appearing 71-year-old female, sitting up in a chair, comfortable, NARD Neuro: awake, alert and oriented x4, speech clear, no focal neuro deficits noted HEENMT: normocephalic, atraumatic, EOMI, sclerae anicteric, moist oral mucosa Respiratory: clear to auscultation bilaterally, nonlabored breathing Cardio: regular rate, regular rhythm with S1-S2 Abdomen: nondistended, normoactive bowel sounds, soft, nontender to palpation Extremities: right hip nontender to palpation, bilateral lower extremities without edema, erythema, or tenderness to palpation, DP pulses 2+ bilaterally, able to wiggle toes bilaterally Skin: no rashes or lesions, warm and dry Psych: appropriate mood and affect, judgment and insight intact Objective Data Vital Signs Vital Signs: Vital Signs - 24 hr 07/11/22 13:25 07/11/22 13:40 07/11/22 13:55 Temperature 98.3 F Pulse Rate 67 82 79 Respiratory Rate 8 L 10 L 12 Blood Pressure 140/67 136/73 130/71 Pulse Oximetry 98 100 100 Oxygen Delivery Simple Face Mask Simple Face Mask Simple Face Mask Oxygen Flow Rate 8 8 8 07/11/22 14:10 07/11/22 14:25 07/11/22 14:55 Temperature Pulse Rate 88 81 80
[2022-07-12] MEDS: LORATADINE 10 MG TABLET PO (20:40)
[2022-07-12] MEDS: PANTOPRAZOLE 40 MG TABLET PO (20:40)
[2022-07-12] MEDS: PRAVASTATIN SODIUM 20 MG TABLET PO (20:40)
[2022-07-12] MEDS: LEVOTHYROXINE SODIUM 75 MCG TABLET PO (20:40)
[2022-07-12] MEDS: HYDROcodone/acetaminophen (*CRX) 7.5-325 MG TABLET 1 TAB PO (22:50)
[2022-07-12] MEDS: diazePAM (*CRX) 5 MG TABLET PO (22:50)
[2022-07-13] MEDS: HYDROcodone/acetaminophen (*CRX) 7.5-325 MG TABLET 2 TAB PO ×2 (05:12→23:42)
[2022-07-13 06:11] LABS: Hematocrit 32.2 % (37.0-47.0); Hemoglobin 10.7 g/dL (12.0-15.0); Mean Corpuscular HGB Conc 33.2 g/dl (32-36); Mean Corpuscular Hemoglobin 30.8 pg (26-34); Mean Corpuscular Volume 92.8 fl (80-100); Mean Platelet Volume 10.7 fl (7.4-10.4); Platelet Count Result 207 k/mm3 (150-375); Red Blood Count 3.47 M/mm3 (4.2-5.4); Red Cell Distribution Width 12.1 % (11.5-14.5); White Blood Count 9.6 K/mm3 (4.5-10.0)
[2022-07-13 06:20] LABS: Anion Gap 6 mmol/L (8-16); Blood Urea Nitrogen 15 mg/dL (7-17); Calcium 8.1 mg/dL (8.4-10.2); Carbon Dioxide 28 mmol/L (22-30); Chloride 103 mmol/L (98-107); Estimated CRCL calculation 59 ml/min; Estimated Glomerular Filt Rate > 60; Glucose 96 mg/dL (65-110); Potassium 3.9 mmol/L (3.4-5.0); Sodium 137 mmol/L (137-145)
[2022-07-13] MEDS: diazePAM (*CRX) 5 MG TABLET PO (06:57)
[2022-07-13] MEDS: polyethylene glycoL 3350 17 GM POWD.PACK PO (08:27)
[2022-07-13] MEDS: SENNA/DOCUSATE SODIUM TABLET 2 TAB PO ×2 (08:27→22:22)
[2022-07-13] MEDS: ASPIRIN 325 MG ENTERIC TABLET PO ×2 (08:27→20:16)
[2022-07-13] MEDS: CELECOXIB 200 MG CAPSULE PO (08:27)
[2022-07-13] MEDS: FAMOTIDINE 20 MG TABLET PO ×2 (08:29→22:22)
[2022-07-13 10:05] VITALS: BP 108/58; PULSE 68; RESP 16; TEMP 36.6; O2SAT 97
--- NOTE | 2022-07-13 10:45 | PM.IMPN ---
Progress Note: A&P Assessment and Plan (1) Fall: Code(s): W19.XXXA - Unspecified fall, initial encounter Status: Acute Assessment and Plan: Suffered mechanical fall at her son's home on 07/08, tripped over a baby gate. No loss of consciousness. No head injury. No precipitating symptoms. Ankle x-ray with no acute osseous findings Fall precautions (2) Closed subcapital fracture of neck of right femur: Qualifiers: Encounter type: subsequent encounter Fracture healing: with routine healing Qualified Code(s): S72.011D - Unspecified intracapsular fracture of right femur, subsequent encounter for closed fracture with routine healing Code(s): S72.011A - Unspecified intracapsular fracture of right femur, initial encounter for closed fracture Status: Acute Assessment and Plan: Secondary to fall hip/pelvis x-ray showed subcapital right femoral neck fracture appreciate orthopedic surgery consultation underwent percutaneous pinning of right femoral neck fracture on 07/11/[address] Lucia. Tolerated the procedure well and pain is well controlled. Continue PT/OT DVT prophylaxis deferred to orthopedic surgery. Aspirin 325 mg b.i.d. Analgesics available as needed (3) Thyroid disorder: Code(s): E07.9 - Disorder of thyroid, unspecified Status: Chronic Assessment and Plan: TSH is within normal limits continue levothyroxine (4) Anxiety: Code(s): F41.9 - Anxiety disorder, unspecified Status: Chronic Assessment and Plan: mood is stable at this time continue home Xanax 0.5 mg t.i.d. p.r.n. (5) Normocytic anemia: Code(s): D64.9 - Anemia, unspecified Status: Acute Assessment and Plan: no prior labs to establish baseline. Hemoglobin is very mildly decreased continue to monitor H&H postoperative. Remaining stable. Current H/H 10.4/33.5 Time Spent With Patient Time with patient: Greater than 35 minutes Subjective Date/time seen: 07/13/225 Interval history: 07/13/22 104 Patient was sitting in the chair. Patient stated that she feels better and she is preferring to go home at this time. She denies any chest pain, shortness a breath, nausea, vomiting, diarrhea constipation, weakness or fatigue. Patient did state that she has dealt with the nonweightbearing status before. She also stated that her son is home and can help her at home. She appears to be stable at this time awaiting further instruction for discharge. Date of service: 07/12/2022 Kathryn Austin is a 71-year-old female with a history of asthma, hyperlipidemia, hypothyroidism, GERD, anxiety, osteopenia, left femoral fracture following fall s/p left hip pinning in February 2021 who is seen in follow-up for right hip fracture secondary to fall. She is pod POD #1. She is doing well with therapy today. She was able to get up to the chair. She has minimal to no hip pain. She only notices it when she does certain specific movements with therapy. She denies nausea, vomiting, fever, or chills. She is tolerating her diet. Denies urinary symptoms. Denies shortness of breath or chest pain. Review of Systems Review of Systems: All systems reviewed & are unremarkable except as noted in HPI and below Exam Narrative: General: well-nourished, well-appearing 71-year-old female, sitting up in a chair, comfortable, NARD Neuro: awake, alert and oriented x4, speech clear, no focal neuro deficits noted HEENMT: normocephalic, atraumatic, EOMI, sclerae anicteric, moist oral mucosa Respiratory: clear to auscultation bilaterally, nonlabored breathing Cardio: regular rate, regular rhythm with S1-S2 Abdomen: nondistended, normoactive bowel sounds, soft, nontender to palpation Extremities: right hip nontender to palpation, bilateral lower extremities without edema, erythema, or tenderness to palpation, DP pulses 2+ bilaterally, able to
[2022-07-13 14:30] VITALS: BP 141/63; PULSE 75; RESP 16; TEMP 35.8; O2SAT 98
[2022-07-13] MEDS: LEVOTHYROXINE SODIUM 75 MCG TABLET PO (20:15)
[2022-07-13] MEDS: LORATADINE 10 MG TABLET PO (20:15)
[2022-07-13] MEDS: PANTOPRAZOLE 40 MG TABLET PO (20:16)
[2022-07-13] MEDS: PRAVASTATIN SODIUM 20 MG TABLET PO (20:16)
[2022-07-13 22:14] VITALS: BP 118/56; PULSE 66; RESP 16; TEMP 36.6; O2SAT 97
[2022-07-13] MEDS: ALPRAZolam (*CRX) 0.5 MG TABLET PO (22:42)
[2022-07-14] MEDS: SENNA/DOCUSATE SODIUM TABLET 2 TAB PO ×2 (08:59→21:28)
[2022-07-14] MEDS: ASPIRIN 325 MG ENTERIC TABLET PO ×2 (08:59→21:28)
[2022-07-14] MEDS: CELECOXIB 200 MG CAPSULE PO (08:59)
--- NOTE | 2022-07-14 12:45 | PM.IMPN ---
Progress Note: A&P Assessment and Plan (1) Fall: Code(s): W19.XXXA - Unspecified fall, initial encounter Status: Acute Assessment and Plan: Suffered mechanical fall at her son's home on 07/08, tripped over a baby gate. No loss of consciousness. No head injury. No precipitating symptoms. Ankle x-ray with no acute osseous findings Fall precautions (2) Closed subcapital fracture of neck of right femur: Qualifiers: Encounter type: subsequent encounter Fracture healing: with routine healing Qualified Code(s): S72.011D - Unspecified intracapsular fracture of right femur, subsequent encounter for closed fracture with routine healing Code(s): S72.011A - Unspecified intracapsular fracture of right femur, initial encounter for closed fracture Status: Acute Assessment and Plan: Secondary to fall hip/pelvis x-ray showed subcapital right femoral neck fracture appreciate orthopedic surgery consultation underwent percutaneous pinning of right femoral neck fracture on 07/11/[address] Lucia. Tolerated the procedure well and pain is well controlled. Continue PT/OT DVT prophylaxis deferred to orthopedic surgery. Aspirin 325 mg b.i.d. Analgesics available as needed (3) Thyroid disorder: Code(s): E07.9 - Disorder of thyroid, unspecified Status: Chronic Assessment and Plan: TSH is within normal limits continue levothyroxine (4) Anxiety: Code(s): F41.9 - Anxiety disorder, unspecified Status: Chronic Assessment and Plan: mood is stable at this time continue home Xanax 0.5 mg t.i.d. p.r.n. (5) Normocytic anemia: Code(s): D64.9 - Anemia, unspecified Status: Acute Assessment and Plan: no prior labs to establish baseline. Hemoglobin is very mildly decreased continue to monitor H&H postoperative. Remaining stable. Current H/H 10.4/33.5 Time Spent With Patient Time with patient: 25 - 35 minutes Subjective Date/time seen: 07/14/22 1245 Interval history: 07/14/22 1245 Patient is doing well. She is a bit upset that her medication are not being administered as she prefers. She denies any chest pain, shortness of breath, nausea, vomiting, diarrhea, constipation, weakness or fatigue. 07/13/22 1045 Patient was sitting in the chair. Patient stated that she feels better and she is preferring to go home at this time. She denies any chest pain, shortness a breath, nausea, vomiting, diarrhea constipation, weakness or fatigue. Patient did state that she has dealt with the nonweightbearing status before. She also stated that her son is home and can help her at home. She appears to be stable at this time awaiting further instruction for discharge. Date of service: 07/12/2022 Kathryn Austin is a 71-year-old female with a history of asthma, hyperlipidemia, hypothyroidism, GERD, anxiety, osteopenia, left femoral fracture following fall s/p left hip pinning in February 2021 who is seen in follow-up for right hip fracture secondary to fall. She is pod POD #1. She is doing well with therapy today. She was able to get up to the chair. She has minimal to no hip pain. She only notices it when she does certain specific movements with therapy. She denies nausea, vomiting, fever, or chills. She is tolerating her diet. Denies urinary symptoms. Denies shortness of breath or chest pain. Review of Systems Review of Systems: All systems reviewed & are unremarkable except as noted in HPI and below Exam Narrative: General: well-nourished, well-appearing 71-year-old female, sitting up in a chair, comfortable, NARD Neuro: awake, alert and oriented x4, speech clear, no focal neuro deficits noted HEENMT: normocephalic, atraumatic, EOMI, sclerae anicteric, moist oral mucosa Respiratory: clear to auscultation bilaterally, nonlabored breathing Cardio: regular rate, regular rhythm with S1-S
[2022-07-14 14:00] VITALS: BP 138/64; PULSE 78; RESP 16; TEMP 36.5; O2SAT 98
[2022-07-14 20:00] VITALS: PULSE 78; RESP 18; O2SAT 96
[2022-07-14] MEDS: ALPRAZolam (*CRX) 0.5 MG TABLET PO (21:27)
[2022-07-14] MEDS: HYDROcodone/acetaminophen (*CRX) 7.5-325 MG TABLET 1 TAB PO (21:27)
[2022-07-14] MEDS: LORATADINE 10 MG TABLET PO (21:29)
[2022-07-14] MEDS: PRAVASTATIN SODIUM 20 MG TABLET PO (21:29)
[2022-07-14] MEDS: FAMOTIDINE 20 MG TABLET PO (21:33)
[2022-07-14 22:00] VITALS: BP 116/61; PULSE 78; RESP 18; TEMP 36.4; O2SAT 96
[2022-07-15] MEDS: LEVOTHYROXINE SODIUM 75 MCG TABLET PO (04:30)
[2022-07-15] MEDS: PANTOPRAZOLE 40 MG TABLET PO (04:30)
[2022-07-15] MEDS: diazePAM (*CRX) 5 MG TABLET PO (04:42)
[2022-07-15 05:34] VITALS: BP 126/68; PULSE 73; RESP 16; TEMP 36.2; O2SAT 94
--- NOTE | 2022-07-15 07:15 | PM.DS ---
DS: Admitting Diagnosis Discharge Date 07/15/2215 Admitting Diagnosis Acute hip fracture DS: Discharge Diagnosis Discharge Diagnosis (1) Fall: Code(s): W19.XXXA - Unspecified fall, initial encounter Status: Acute Assessment and Plan: Suffered mechanical fall at her son's home on 07/08, tripped over a baby gate. No loss of consciousness. No head injury. No precipitating symptoms. Ankle x-ray with no acute osseous findings Fall precautions (2) Closed subcapital fracture of neck of right femur: Qualifiers: Encounter type: subsequent encounter Fracture healing: with routine healing Qualified Code(s): S72.011D - Unspecified intracapsular fracture of right femur, subsequent encounter for closed fracture with routine healing Code(s): S72.011A - Unspecified intracapsular fracture of right femur, initial encounter for closed fracture Status: Acute Assessment and Plan: Secondary to fall hip/pelvis x-ray showed subcapital right femoral neck fracture appreciate orthopedic surgery consultation underwent percutaneous pinning of right femoral neck fracture on 07/11/[address] Lucia. Tolerated the procedure well and pain is well controlled. Continue PT/OT DVT prophylaxis deferred to orthopedic surgery. Aspirin 325 mg b.i.d. Analgesics available as needed (3) Thyroid disorder: Code(s): E07.9 - Disorder of thyroid, unspecified Status: Chronic Assessment and Plan: TSH is within normal limits continue levothyroxine (4) Anxiety: Code(s): F41.9 - Anxiety disorder, unspecified Status: Chronic Assessment and Plan: mood is stable at this time continue home Xanax 0.5 mg t.i.d. p.r.n. (5) Normocytic anemia: Code(s): D64.9 - Anemia, unspecified Status: Acute Assessment and Plan: no prior labs to establish baseline. Hemoglobin is very mildly decreased continue to monitor H&H postoperative. Remaining stable. DS: Summary Hospital Course Hospital Course: Patient is a 71-year-old female patient with a history of anxiety, hypothyroidism, HLD who presented to the ED with complaints of right hip pain. Patient had a fall trying to get up her baby gate and landed on her right hip. Upon arrival x-ray of the hip did show right femoral neck fracture. Orthopedics has been consulted and patient was taken to OR for nailing. Patient's for him with PT and OT and has been doing well. She denies any chest pain, shortness a breath, nausea, vomiting, diarrhea, constipation, weakness or fatigue. Patient has been walking with a wheeled walker with PT and OT. Currently patient rates her pain as a 2/10 while laying, but it gets high with activity. Patient stable for discharge for labs and vital signs at this time. Patient will need to follow up with Orthopedics as instructed. Patient did well through her visit. Safe pain medication administration education has been given along with wound care. Status at Discharge Functional status at discharge: uses cane/walker Overall status at discharge: patient is progressing back to baseline Time Spent with Patient Time attestation: Total time spent providing and/or coordinating discharge services: 43 minutes Time spent: Greater than 30 minutes Specific discharge activities: Diagnostic testing, chart review, developing a treatment plan, education, care coordination documentation, physical exam, result review Exam Narrative: General: well-nourished, well-appearing 71-year-old female, sitting up in a chair, comfortable, NARD Neuro: awake, alert and oriented x4, speech clear, no focal neuro deficits noted HEENMT: normocephalic, atraumatic, EOMI, sclerae anicteric, moist oral mucosa Respiratory: clear to auscultation bilaterally, nonlabored breathing Cardio: regular rate, regular rhythm with S1-S2 Abdomen: nondistended, normoactive bowel sounds, soft, nontender t
[2022-07-15] MEDS: CELECOXIB 200 MG CAPSULE PO (09:37)
[2022-07-15] MEDS: ASPIRIN 325 MG ENTERIC TABLET PO (09:37)
[2022-07-15 14:00] VITALS: BP 135/70; PULSE 77; RESP 18; TEMP 37.1; O2SAT 96
[2022-07-15 15:25] LABS: EDCOVIDSCREEN Positive (Negative)
[2022-07-15 16:36] LABS: SARS-CoV-2 RNA PCR Negative
--- NOTE | 2022-07-17 10:12 | PCCCNOTE ---
VM received from Ani Mckeon about her mom and wanting some choices for rehab as she did not dc to a rehab facility but went home with her. Return call to [phone] with no answer, left vm message with care coordination's phone # for a return call.
== END 2022-07-15 18:58 | DRG 482 ==
LOC: ANHED 19:06 → ANH3MED 19:22
PROVIDERS: Nurse Practitioner; Orthopaedic Surgery; Physician Assistant; Admitting Provider Student in an Organized Health Care Education/Training Program; Emergency Provider Emergency Medicine; PCP Nurse Practitioner Family; Visit Provider Nurse Practitioner
PROC: 0QH634Z Insertion of Internal Fixation Device into Right Upper Femur, Percutaneous Approach (ICD-10-PCS; principal; 2022-07-11 12:00)
DX: S72.011A Unspecified intracapsular fracture of right femur, initial encounter for closed fracture (principal); W18.09XA Striking against other object with subsequent fall, initial encounter; K21.9 Gastro-esophageal reflux disease without esophagitis; E78.5 Hyperlipidemia, unspecified; J45.909 Unspecified asthma, uncomplicated; F41.9 Anxiety disorder, unspecified; D64.9 Anemia, unspecified; E03.9 Hypothyroidism, unspecified; M85.80 Other specified disorders of bone density and structure, unspecified site; Z20.822 Contact with and (suspected) exposure to COVID-19
CPT/HCPCS: 36415; 71045; 73502; 73600; 80048; 80053; 80307; 83735; 84443; 85025; 85027; 85610; 85730; 86850; 86900; 86901; 87426; 87636; 93005; 96374; 96375; 96376; 97110; 97116; 97161; 97166; 97530; 97535; 99199; 99285; A9270; C1713; C1769; C9803; G0378; J0690; J1100; J1170; J2250; J2270; J2370; J2405; J2704; J3010; J7120; U0003; U0005

== ENCOUNTER 2023-02-20 11:48 | Emergency (ER) | payer MEDICARE, SELFPAY ==
--- NOTE | ~2023-02-20 | XR_ITS ---
EXAMINATION: XR ribs LT 2V w CXR 2V DATE: 02/20/2023 12:47 INDICATION: Left-sided rib pain post fall TECHNIQUE: A frontal inspiratory view of the chest and 3 views of the left ribs were obtained. COMPARISON: Chest radiograph dated 07/09/2022 FINDINGS: Age-indeterminate fractures at the posterolateral left eighth and ninth ribs. Acute appearing fractur es of the anterolateral eighth and ninth ribs. Lungs are clear with no focal airspace opacities, pulm onary edema, pleural effusion or pneumothorax. Cardiomediastinal silhouette is normal. Moderate thora cic spondylosis. IMPRESSION: 1. Minimally displaced minimally displaced acute-appearing fractures of the anterolateral left eighth and ninth ribs with additional age-indeterminate fracture at the posterolateral aspect of the same l eft eighth and ninth ribs. 2. No pneumothorax, pleural effusion or other acute cardiopulmonary disease. Reviewed, dictated and finalized at location A. IMPRESSION: 1. Minimally displaced minimally displaced acute-appearing fractures of the ant erolateral left eighth and ninth ribs with additional age-indeterminate fractur e at the posterolateral aspect of the same left eighth and ninth ribs. 2. No pneumothorax, pleural effusion or other acute cardiopulmonary disease.
--- NOTE | ~2023-02-20 | XR_ITS ---
EXAMINATION: XR mandible min 4V INDICATION: Left-sided jaw pain and swelling TECHNIQUE: Six views of the mandible are obtained. COMPARISON: None available FINDINGS: Bone alignment is normal. No fracture is identified. 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 Mild to moderate cervical spondylosis is noted. The soft tissues appear unremarkab le. IMPRESSION: 1. No displaced fracture of the mandible identified. If there is high clinical suspicion for mandibul ar fracture, follow-up with CT is recommended. Reviewed, dictated and finalized at location B. IMPRESSION: 1. No displaced fracture of the mandible identified. If there is high clinical suspicion for mandibular fracture, follow-up with CT is recommended.
--- NOTE | 2023-02-20 12:04 | ED.ABDPAIN ---
HPI - Abdominal Pain General Chief Complaint: Chest Pain Stated Complaint: Fall, abodominal pain Time Seen by Provider: 02/20/23 12:05 Source: patient Mode of arrival: ambulatory Limitations: no limitations History of Present Illness HPI narrative: 72 y/o female presented for c/o left rib pain after a fall at home 2 days ago. States she woke in the night to go to the bathroom, then lost balance and fell between the toilet and the bathtub. States she struck the ribs on the toilet. Admits to striking the left jaw on something, and reports bruising to the site. States rib pain is constant, minimal at rest, worse when getting out of bed. States she is not 'talking with much volume' due to the rib pain. Taking ibuprofen and using pain cream. Denies headache, dizziness, neck pain, shortness of breath, palpitations, n/v/d/f/c. No other pain reported. Related Data Home Medications Medication Instructions Recorded Confirmed alprazolam 0.5 mg tablet 0.5 mg PO TID PRN Anxiety 09/01/21 02/20/23 pantoprazole 40 mg tablet,delayed 40 mg PO QAM 09/01/21 02/20/23 release pravastatin 20 mg tablet 20 mg PO QHS 09/01/21 02/20/23 zolpidem 5 mg tablet 5 mg PO QHS PRN Insomnia 09/01/21 02/20/23 levothyroxine 75 mcg tablet 75 mcg PO QAM 07/09/22 02/20/23 buspirone 7.5 mg tablet 7.5 mg PO BID 02/20/23 02/20/23 montelukast 10 mg tablet 10 mg PO HS 02/20/23 02/20/23 Allergies Allergy/AdvReac Type Severity Reaction Status Date / Time No Known Allergies Allergy Mild Verified 02/20/23 11:59 Review of Systems Review of Systems: CONSTITUTIONAL: Denies body aches, fever, chills, or sweats. EYES: Denies visual changes, redness, or discharge. ENT: Denies rhinorrhea, epistaxis, sore throat, or otalgia. CARDIOVASCULAR: Denies chest pain, palpitations, or edema. RESPIRATORY: Denies cough or dyspnea. GASTROINTESTINAL: Denies abdominal pain, nausea, vomiting, or diarrhea. GENITOURINARY: Denies dysuria or hematuria. SKIN: Denies rash, bruising, or wounds. MUSCULOSKELETAL: Reports left rib pain, Denies back pain, neck pain, joint pain, or myalgia. 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 She is lifelong nonsmoker. She denies any alcohol marijuana or illicit drugs. She stated that she wanted her children to be her durable power state attorney for healthcare. 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
[2023-02-20 12:06] VITALS: BP 121/83; PULSE 85; RESP 16; TEMP 36.8; O2SAT 96
== END 2023-02-20 13:33 | disposition home or self-care (01) ==
PROVIDERS: Emergency Provider Nurse Practitioner Family; PCP Nurse Practitioner Family
DX: S22.32XA Fracture of one rib, left side, initial encounter for closed fracture (principal); W19.XXXA Unspecified fall, initial encounter; S00.83XA Contusion of other part of head, initial encounter; J45.909 Unspecified asthma, uncomplicated; K21.9 Gastro-esophageal reflux disease without esophagitis; E78.5 Hyperlipidemia, unspecified; E07.9 Disorder of thyroid, unspecified; F41.9 Anxiety disorder, unspecified
CPT/HCPCS: 70110; 71046; 71100; 99214; G0463

== ENCOUNTER 2024-01-15 14:39 | Outpatient (CLI) | payer MEDICARE, SELFPAY ==
--- NOTE | ~2024-01-15 | MM_ITS ---
EXAMINATION: MM screening [place] BI w garo HISTORY: Screening TECHNIQUE: Craniocaudal and mediolateral oblique 3-D tomosynthesis images were obtained and synthetic 2-D images were generated. CAD analysis was submitted and interpreted. COMPARISON: Comparison to multiple prior studies sequentially, with oldest reviewed study dated 06/11/2015. BREAST PARENCHYMAL COMPOSITION: Not dense: There are scattered areas of fibroglandular density. FINDINGS: There is no evidence of suspicious mass, calcification, or architectural distortion to sugg est malignancy in either breast. There has been no suspicious interval change. IMPRESSION: 1. No mammographic evidence of malignancy. 2. Recommend routine screening mammography in one year. BI-RADS Category 1: Negative Reviewed, dictated and finalized at location B.
== END 2024-01-15 14:40 | disposition home or self-care (01) ==
LOC: ANHIMG 14:42
PROVIDERS: PCP Nurse Practitioner Family; Visit Provider Family Medicine
DX: Z12.31 Encounter for screening mammogram for malignant neoplasm of breast (principal)
CPT/HCPCS: 77063; 77067

== ENCOUNTER 2024-04-18 12:35 | Inpatient (IN) | payer MEDICARE, SELFPAY ==
[2024-04-18] VITALS (16 sets, daily range): BP systolic 101–132; BP diastolic 51–83; PULSE 80–95; RESP 14–26; TEMP 36.4–37.1; O2SAT 90–97
--- NOTE | ~2024-04-18 | XR_ITS ---
AP view of the pelvis and AP and lateral views of the left hip Clinical history: Pain COMPARISON: 08/25/2022 Findings: There is probable acute fracture of the right superior and inferior pubic rami. Somewhat ag e indeterminate fracture of the left inferior pubic ramus, possibly acute.. Bilateral femoral and ort hopedic screws are unchanged. Osseous alignment is anatomic. Bilateral hip and SI joint spaces are pr eserved. Soft tissues are unremarkable. Impression: Probable acute fractures of the right superior and inferior pubic rami. Age indeterminate, possible a cute fracture of the left inferior pubic ramus. Stable bilateral femoral neck screws. Reviewed, dictated and finalized at location . Impression: Probable acute fractures of the right superior and inferior pubic rami. Age ind eterminate, possible acute fracture of the left inferior pubic ramus. Stable bilateral femoral neck screws.
--- NOTE | ~2024-04-18 | CT_ITS ---
EXAMINATION: CT brain wo con DATE: 04/18/2024 13:39 INDICATION: Fall with head injury and hematoma TECHNIQUE: Computed tomography (CT) of the head was performed without intravenous contrast. Sagittal and coronal reconstructions were performed. The mA was adjusted according to patient size. Iterative reconstruction technique was employed. The dose-length product was 605.33 mGy-cm. COMPARISON: None FINDINGS: No fracture. No acute intracranial hemorrhage, acute infarction or abnormal extra axial fluid collect ion. Ventricles are normal and symmetric. No mass/mass effect. Symmetric prominence of the sulci cons istent with mild age-appropriate diffuse cerebral volume loss. The orbits and mastoid air cells are n ormal. There is opacification of the posterior right ethmoid air cells. Many of the paranasal sinuses are clear. Likely hearing aid at the right external auditory canal. IMPRESSION: 1. Normal aging brain. No fracture or acute intracranial process. Reviewed, dictated and finalized at location A.
--- NOTE | 2024-04-18 13:24 | ED.FALL ---
HPI - Fall General Chief Complaint: Fall Stated Complaint: fall, hip injury Time Seen by Provider: 04/18/24 12:58 Source: patient and EMS Mode of arrival: EMS Limitations: no limitations History of Present Illness HPI Narrative: Patient presents after falling yesterday morning at approximately 4:30 a.m.. She states she got up too quickly out of bed and was not fully awake yet and that is why she fell. She was able to ambulate. She is complaining of pain in her left hip as well as head pain. Not on anticoagulation. She states she has a history 3 screws in each hip. Currently on purewick device as she states she needed to urinate. Patient was ambulatory yesterday three times, going to the bathroom each time. Related Data Home Medications Medication Instructions Recorded Confirmed pantoprazole 40 mg tablet,delayed 40 mg PO QAM 09/01/21 04/18/24 release pravastatin 20 mg tablet 20 mg PO QHS 09/01/21 04/18/24 levothyroxine 75 mcg tablet 50 mcg PO QAM 07/09/22 04/18/24 buspirone 7.5 mg tablet 7.5 mg PO BID 02/20/23 04/18/24 montelukast 10 mg tablet 10 mg PO HS 02/20/23 04/18/24 albuterol sulfate 90 mcg/actuation 2 puff inhalation QID PRN 04/18/24 04/18/24 aerosol inhaler Shortness Of Breath Or Wheezing alendronate 70 mg tablet 70 mg PO WEEKLY 04/18/24 04/18/24 Allergies Allergy/AdvReac Type Severity Reaction Status Date / Time No Known Allergies Allergy Mild Verified 02/20/23 11:59 [facility] Past Medical History Medical History (Updated 04/18/24 @ 22:01 by Arielle Mathias DO) Anxiety Asthma Chronic anemia GERD (gastroesophageal reflux disease) HLD (hyperlipidemia) Hypothyroidism Surgical History Surgical History History of femur fracture February 2021 pinning left femoral neck fracture in [place] History of surgery on left wrist ORIF 2007 Family History Family History Father Heart disease Beena Gehrig disease Mother Social History Social History (Updated 04/18/24 @ 21:55 by Arielle Mathias DO) Social History: 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 She is lifelong nonsmoker. She denies any alcohol marijuana or illicit drugs. She stated that she wanted her children to be her durable power trademark attorney for healthcare. 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 HEAD: Normocephalic, ecchymosis and small abrasion on forehead, no active bleeding. EYES: Non injected, non icteric. Mild asymmetry as left pupil is 1mm and right is 2mm. ENT: Nares clear, no rhinorrhea or epistaxis. NECK: Supple. CHEST: Speaking in full sentences. No respiratory distress. HEART: Regular rate and rhythm. . ABDOMEN: Soft, nondistended. EXTREMITIES: Normal range of motion. No lower extremity edema. Pelvis stable to compression. SKIN: Warm, dry, no rash. NEURO: No focal deficits. Alert and oriented. PSYCH: Normal mood and affect. Course Vital Signs Vital signs: Vital Signs Temperature 98.5 F 04/18/24 12:36
--- NOTE | 2024-04-18 13:24 | PC.NURSE ---
Purple round bruise to forehead. Skin intact. Pt states forehead wound is from a fall yesterday. Pt also fell today and is c/o left hip pain. No deformity to extremity at this time.
--- NOTE | 2024-04-18 13:53 | PC.NURSE ---
Pure wick applied. Pt aware that urine sample is needed.
[2024-04-18] MEDS: HYDROcodone/acetaminophen (*CRX) 5-325 MG TABLET 1 TAB PO (13:55)
[2024-04-18 14:59] LABS: Basophils Absolute Auto 0.1 K/mm3 (0.0-0.1); Basophils Percent Auto 0.4 % (0.2-1.2); Eosinophils Absolute Auto 0.2 K/mm3 (0-0.3); Eosinophils Percent Auto 1.3 % (0-4.4); Hematocrit 33.9 % (37.0-47.0); Hemoglobin 11.5 g/dL (12.0-15.0); Immature Granulocyte Absolute 0.05 K/mm3 (0.00-0.031); Immature Granulocyte Percent A 0.4 % (0-0.5); Lymphocytes Absolute Auto 1.14 K/mm3 (0.9-3.2); Lymphocytes Percent Auto 9.4 % (18.3-44.2); Mean Corpuscular HGB Conc 33.9 g/dl (32-36); Mean Corpuscular Volume 91.4 fl (80-100); Mean Platelet Volume 10.4 fl (7.4-10.4); Monocytes Absolute Auto 0.8 K/mm3 (0.1-0.6); Monocytes Percent Auto 6.2 % (2.6-8.5); Neutrophils Percent Auto 82.3 % (45.5-73.1); Platelet Count Result 142 k/mm3 (150-375); Red Blood Count 3.71 M/mm3 (4.2-5.4); White Blood Count 12.2 K/mm3 (4.5-10.0)
[2024-04-18 15:08] LABS: Add Urine Microscopic? YES; Albumin Level 3.8 g/dL (3.5-5.1); Alkaline Phosphatase 72 U/L (38-126); Anion Gap 10 mmol/L (4-12); Appearance Urine Clear (Clear); Aspartate Amino Transferase 26 U/L (14-36); Bacteria Urine None Seen /hpf; Bilirubin Urine Negative (Negative); Bilirubin,Total 1.7 mg/dL (0.2-1.3); Blood Urea Nitrogen 20 mg/dL (7-17); Blood Urine Negative (Negative); Calcium 8.7 mg/dL (8.4-10.2); Carbon Dioxide 24 mmol/L (22-30); Chloride 106 mmol/L (98-107); Color Urine Yellow (Yellow); Estimated CRCL calculation 48 ml/min; Estimated Glomerular Filt Rate > 60; Glucose 113 mg/dL (65-110); Glucose Urine UA Negative (Negative); INR 1.2; Ketones Urine Trace mg/dL (Negative); Leukocyte Esterase Ur 1+ LEU/UL (Negative); Need Manual Microscopic Reviewed; Nitrate Urine Negative (Negative); Non Pathogenic Casts 0-2; Potassium 3.7 mmol/L (3.4-5.0); Protein Urine Trace mg/dL (Negative); Prothrombin Time 15.1 Seconds (11.1-14.7); RBC Urine 0-2 /hpf (0-2); Sodium 140 mmol/L (137-145); Squamous Epithelial Cell Urine None Seen /hpf (Few); WBC Urine 0-5 /hpf (0-3)
[2024-04-18 15:09] LABS: Partial Thromboplastin Time 28.2 Seconds (22.3-36.8)
[2024-04-18 15:32] LABS: Alanine Aminotransferase < 6 U/L (6-35)
--- NOTE | 2024-04-18 17:22 | PC.NURSE ---
Nurse unavailable to take report at this time
--- NOTE | 2024-04-18 17:51 | ADMGEN ---
This patient, Kathryn Austin, was admitted to Medical Room 258-. Patient/family oriented to hospital policies and general routines including ID bracelet, bed and alarms, visiting hours, pain management, procedures, bathroom and other care routines, personal items, smoking policy, room service/diet, and visiting hours. Information on how to activate the Rapid Response Team has been discussed. Patient/Family are encouraged to report perceived risks to care and to ask questions if they do not understand what they are told or what they should do.
[2024-04-18] MEDS: MORPHINE SULFATE (*CRX) 4 MG/ML INJ IV PUSH (21:40)
[2024-04-18] MEDS: PRAVASTATIN SODIUM 20 MG TABLET PO (23:17)
[2024-04-18] MEDS: MONTELUKAST SODIUM 10 MG TABLET PO (23:18)
[2024-04-18] MEDS: SODIUM CHLORIDE 0.9% IV 1,000 ML 100 ML IV CONT (23:19)
--- NOTE | 2024-04-18 23:50 | PM.IMHP ---
H&P: HPI History of Present Illness Date/Time: 04/18/24 21:50 Chief Complaint: Right hip pain after falling Narrative: 73-year-old female with past medical history of asthma, hypothyroidism, osteoporosis, GERD, and anxiety who presented to the ER after having ground level fall at 04:30 morning on the 4th resulting pain that radiates across her pelvis with movement. The patient reported she got out of bed too fast and was not fully awake and fell. She was able to get up and walk but the pain was quite severe. She currently decided to come in when the pain was not improving. She does admit that she did not have much appetite due to her discomfort and it was limiting her ability to care for self. The patient reports that she was not feeling ill. She always has urinary frequency specially in the morning. She has not been having any dysuria or hematuria. She reports that when she 1st gets up her balance is not the best. She reports her balance has been off ever since she had to have her orthopedic procedures on both hips due to prior fractures. She has not had any vertigo symptoms or lightheadedness. At the time of my evaluation the patient seemed to be slurring her words slightly. She reports that is only due to the fact that she just woke up and had just received pain medications recently. She reports that her smile is chronically uneven. She has never had a history of stroke and denies any sensation changes. Her strength is equal in her upper extremities. Her dorsiflexion is equal bilaterally was somewhat limited due to pain in her pelvis. Patient is wheezing on exam. She reports that she is not having any increased shortness breath. She does tend to wheeze. Review of Systems Review of Systems: 12 systems were reviewed with pertinent positives and negatives per HPI. Except as documented in the HPI, all other systems were reviewed and are negative. [facility] Past Medical History Medical History (Updated 04/19/24 @ 11:00 by Arielle Mathias DO) Anxiety Asthma Chronic anemia GERD (gastroesophageal reflux disease) HLD (hyperlipidemia) Hypothyroidism Surgical History Surgical History History of femur fracture February 2021 pinning left femoral neck fracture in [place] History of surgery on left wrist ORIF 2007 Family History Family History Father Heart disease Beena Gehrig disease Mother Social History Social History (Updated 04/19/24 @ 11:06 by Arielle Mathias DO) Social History: She recently retired. Previously she retired March 2024. 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 Her son and his girlfriend her. She is lifelong nonsmoker. She denies any alcohol marijuana or illicit drugs. She stated that she wanted her children to be her durable power assistant city attorney for healthcare. 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
[2024-04-19] VITALS (7 sets, daily range): BP systolic 104–137; BP diastolic 51–63; PULSE 75–86; RESP 16–20; TEMP 35.7–36.8; O2SAT 91–94; BMI 21.7
[2024-04-19] MEDS: traZODone HCL 50 MG TABLET PO ×2 (01:39→20:34)
[2024-04-19] MEDS: HYDROcodone/acetaminophen (*CRX) 5-325 MG TABLET 1 TAB PO (01:39)
[2024-04-19] MEDS: LEVOTHYROXINE SODIUM 50 MCG TABLET PO (06:20)
[2024-04-19] MEDS: busPIRone HCL 2.5 MG TABLET PO ×2 (09:00→20:34)
[2024-04-19] MEDS: ENOXAPARIN 40 MG/0.4 ML SYRINGE SUB-Q (09:01)
[2024-04-19] MEDS: PANTOPRAZOLE 40 MG TABLET PO (09:01)
[2024-04-19] MEDS: busPIRone HCL 5 MG TABLET PO ×2 (09:01→20:34)
[2024-04-19] MEDS: MORPHINE SULFATE (*CRX) 4 MG/ML INJ IV PUSH (10:13)
[2024-04-19 11:29] LABS: Hematocrit 30.8 % (37.0-47.0); Hemoglobin 10.4 g/dL (12.0-15.0); Immature Platelet Fraction Pct 5.8 % (0.9-11.2); Mean Corpuscular HGB Conc 33.8 g/dl (32-36); Mean Corpuscular Hemoglobin 31.3 pg (26-34); Mean Corpuscular Volume 92.8 fl (80-100); Mean Platelet Volume 10.3 fl (7.4-10.4); Platelet Count Result 136 k/mm3 (150-375); Red Blood Count 3.32 M/mm3 (4.2-5.4); Red Cell Distribution Width 12.1 % (11.5-14.5); White Blood Count 9.4 K/mm3 (4.5-10.0)
[2024-04-19 11:41] LABS: Alanine Aminotransferase 12 U/L (6-35); Albumin Level 3.3 g/dL (3.5-5.1); Alkaline Phosphatase 57 U/L (38-126); Anion Gap 6 mmol/L (4-12); Aspartate Amino Transferase 24 U/L (14-36); Bilirubin,Total 1.2 mg/dL (0.2-1.3); Blood Urea Nitrogen 18 mg/dL (7-17); Calcium 7.6 mg/dL (8.4-10.2); Carbon Dioxide 26 mmol/L (22-30); Chloride 103 mmol/L (98-107); Estimated CRCL calculation 48 ml/min; Estimated Glomerular Filt Rate > 60; Glucose 107 mg/dL (65-110); Potassium 3.4 mmol/L (3.4-5.0); Sodium 135 mmol/L (137-145)
--- NOTE | 2024-04-19 12:24 | PM.IMPN ---
Progress Note: A&P Assessment and Plan (1) Fall: Qualifiers: Encounter type: initial encounter Qualified Code(s): W19.XXXA - Unspecified fall, initial encounter Code(s): W19.XXXA - Unspecified fall, initial encounter Status: Acute (2) Fracture of ramus of right pubis: Qualifiers: Encounter type: initial encounter Fracture type: closed Qualified Code(s): S32.591A - Other specified fracture of right pubis, initial encounter for closed fracture Code(s): S32.591A - Other specified fracture of right pubis, initial encounter for closed fracture Status: Acute Assessment and Plan: 04/19/24: Awaiting Orthopedics consult Up to chair with assist. Awaiting PT and OT consult. (3) Azotemia: Code(s): R79.89 - Other specified abnormal findings of blood chemistry Status: Acute Assessment and Plan: 04/19/24: Improving 20-->18 Monitor (4) Hyperbilirubinemia: Code(s): E80.6 - Other disorders of bilirubin metabolism Status: Resolved Assessment and Plan: 04/19/24: Resolved with Bili this AM of 1.2. (5) Hypothyroidism: Qualifiers: Hypothyroidism type: unspecified Qualified Code(s): E03.9 - Hypothyroidism, unspecified Code(s): E03.9 - Hypothyroidism, unspecified Status: Chronic Assessment and Plan: 04/19/24: Continue Levothyroxine. (6) Asthma: Qualifiers: Asthma severity: mild Asthma persistence: persistent Asthma complication type: uncomplicated Qualified Code(s): J45.30 - Mild persistent asthma, uncomplicated Code(s): J45.909 - Unspecified asthma, uncomplicated Status: Chronic Assessment and Plan: 04/19/24: Continue home medications Monitor Time Spent With Patient Time with patient: 15 - 25 minutes Subjective Date/time seen: 04/19/24 1130 Interval history: This pt was examined at the bedside today since being admitted to the hospital for her pelvic fracture. She has controlled pain until she moves which makes it worse. No additional complaints, symptoms or concerns today. Review of Systems Review of Systems: All systems reviewed & are unremarkable except as noted in HPI and below Exam Const: General: comfortable and no acute distress HENMT: Mouth: Yes moist mucous membranes Eyes: General: appearance normal, both eyes and all related structures Sclera: sclerae normal Pupils: Equal, round and reactive pupils present Neck: Neck: supple and no JVD Resp: Effort & Inspection: normal respiratory effort Auscultation: clear to auscultation bilaterally Cardio: Rate: regular rate Rhythm: regular rhythm Heart sounds: no gallops, no murmurs and no rubs GI: Inspection: non-distended GI Palp: Yes Soft to palpation and No Tenderness to palpation present (GI) Auscultation: normal bowel sounds Skin: General skin exam: normal color, no rashes or lesions noted and no erythema Lesions: no lesions noted Rashes: no rashes noted Wounds: no wounds Neuro: General: No gait normal (Limp noted due to fracture.) Speech: normal speech Motor exam (neuro): 5/5 motor strength present throughout and Normal motor muscle tone present throughout Sensory Exam: normal sensation Extrem: General: normal to inspection and no edema Psych: Mental Status: mental status grossly normal Affect: normal affect Objective Data Vital Signs Vital Signs: Vital Signs - 24 hr 04/18/24 12:36 04/18/24 13:56 04/18/24 12:42 Temperature 98.5 F Pulse Rate 83 85 85 Respiratory Rate 18 14 15 Blood Pressure 132/63 132/83 132/63 Pulse Oximetry 97 93 94 Oxygen Delivery Room Air 04/18/24 13:01 04/18/24 13:50 04/18/24 14:30 Temperature Pulse Rate 80 94 95 Respiratory Rate 19 18 16 Blood Pressure 114/66 132/83 121/61 Pulse Oximetry 91 94 Oxygen Delivery 04/18/24 15:03 04/18/24 15:30 04/18/24 16:00 Temperature Pulse Rate 93 84 88 Respiratory Rate 16 16 21 H Blood P
--- NOTE | 2024-04-19 17:02 | PM.CNOR ---
Assessment and Plan Assessment and plan (1) Fracture of ramus of right pubis: Qualifiers: Encounter type: initial encounter Fracture type: closed Qualified Code(s): S32.591A - Other specified fracture of right pubis, initial encounter for closed fracture Code(s): S32.591A - Other specified fracture of right pubis, initial encounter for closed fracture Status: Acute Plan Pubic rami fractures after a fall. The right superior and inferior rami are definitely fractured. The left may be fractured. The fractures are stable and can be treated conservatively. She may weight bear as tolerated with a walker. Mobilization will be painful and slow, certainly for the next 1-2 weeks. Some pain for up to 4-6 weeks is expected. The patient is interested in home discharge although this may not be feasible. Will see how she does with physical therapy. She may follow-up with me in the clinic in 4-6 weeks with x-rays. History of Present Illness HPI Consult date: 04/19/24 Chief complaint: Pubic Rami Fx Narrative: Patient fell at home going to the bathroom. This occurred 2 days ago. Complains of increasing pain and difficulty with transfers and ambulation. History of bilateral femoral neck fractures treated with percutaneous pinning. Comfortable at rest. No numbness, tingling, or other associated symptoms. Review of Systems Review of Systems: Denies loss of consciousness. All systems reviewed & are unremarkable except as noted in HPI and below PMFSH Past Medical History Medical History (Updated 04/19/24 @ 12:29 by SHAR Garcia) Anxiety Asthma Chronic anemia GERD (gastroesophageal reflux disease) HLD (hyperlipidemia) Hypothyroidism Surgical History Surgical History History of femur fracture February 2021 pinning left femoral neck fracture in [place] History of surgery on left wrist ORIF 2007 Family History Family History Father Heart disease Beena Gehrig disease Mother Social History Social History (Updated 04/19/24 @ 11:06 by Arielle Mathias DO) Social History: She recently retired. Previously she retired March 2024. 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 Her son and his girlfriend her. She is lifelong nonsmoker. She denies any alcohol marijuana or illicit drugs. She stated that she wanted her children to be her durable power banking attorney for healthcare. 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 Gender identity (if verbalized by the patient): Female Sexual Orientation (if Verbalized by the Patient): Straight or Heterosexual Spiritual care concerns: No Meds Home Medications and Allergies Home Medications Medication Instructions Recorded Confirmed Type pantoprazole 40 mg tablet,delayed 40 mg PO QAM 09/01/21 04/18/24 History release pravastatin 20 mg tablet 20 mg PO QHS 09/01/21 04/18/24 History levothyroxine 75 mcg tablet 50 mcg PO QAM 07/09/22 04/18/24 History buspirone 7.5 mg tablet 7.5 mg PO BID 02/20/23 04/18/24 History montelukast 10 mg tablet 10 mg PO HS 02/20/23 04/18/24 History albuterol sulfate 90 mcg/actuation 2 puff inhalation QID PRN 04/18/24
[2024-04-19] MEDS: oxyCODONE/ACETAMINOPHEN (*CRX) 10-325 MG TABLET 1 TAB PO (18:41)
[2024-04-19] MEDS: PRAVASTATIN SODIUM 20 MG TABLET PO (20:33)
[2024-04-19] MEDS: MONTELUKAST SODIUM 10 MG TABLET PO (20:34)
[2024-04-19] MEDS: ALBUTEROL SULFATE (*SP) AEROSOL 1 PUFF 2 PUFF INHALATION (20:45)
[2024-04-20] MEDS: oxyCODONE/ACETAMINOPHEN (*CRX) 10-325 MG TABLET 1 TAB PO ×3 (00:51→21:43)
[2024-04-20 04:57] LABS: Basophils Absolute Auto 0.1 K/mm3 (0.0-0.1); Basophils Percent Auto 0.8 % (0.2-1.2); Eosinophils Absolute Auto 0.7 K/mm3 (0-0.3); Eosinophils Percent Auto 7.9 % (0-4.4); Hematocrit 31.1 % (37.0-47.0); Hemoglobin 10.2 g/dL (12.0-15.0); Immature Granulocyte Absolute 0.04 K/mm3 (0.00-0.031); Immature Granulocyte Percent A 0.5 % (0-0.5); Immature Platelet Fraction Pct 6.4 % (0.9-11.2); Lymphocytes Absolute Auto 2.13 K/mm3 (0.9-3.2); Lymphocytes Percent Auto 24.1 % (18.3-44.2); Mean Corpuscular HGB Conc 32.8 g/dl (32-36); Mean Corpuscular Hemoglobin 31.1 pg (26-34); Mean Corpuscular Volume 94.8 fl (80-100); Monocytes Absolute Auto 0.9 K/mm3 (0.1-0.6); Monocytes Percent Auto 9.9 % (2.6-8.5); Neutrophils Percent Auto 56.8 % (45.5-73.1); Platelet Count Result 138 k/mm3 (150-375); Red Blood Count 3.28 M/mm3 (4.2-5.4); Red Cell Distribution Width 11.9 % (11.5-14.5); White Blood Count 8.8 K/mm3 (4.5-10.0)
[2024-04-20 05:22] LABS: Alanine Aminotransferase 14 U/L (6-35); Albumin Level 3.2 g/dL (3.5-5.1); Alkaline Phosphatase 57 U/L (38-126); Anion Gap 5 mmol/L (4-12); Aspartate Amino Transferase 31 U/L (14-36); Bilirubin,Total 0.9 mg/dL (0.2-1.3); Blood Urea Nitrogen 17 mg/dL (7-17); Calcium 8.1 mg/dL (8.4-10.2); Carbon Dioxide 27 mmol/L (22-30); Chloride 103 mmol/L (98-107); Estimated CRCL calculation 48 ml/min; Estimated Glomerular Filt Rate > 60; Glucose 114 mg/dL (65-110); Potassium 3.5 mmol/L (3.4-5.0); Sodium 135 mmol/L (137-145)
[2024-04-20] MEDS: LEVOTHYROXINE SODIUM 50 MCG TABLET PO (05:42)
[2024-04-20 06:00] VITALS: BP 126/60; PULSE 70; RESP 20; TEMP 36.6; O2SAT 93
[2024-04-20] MEDS: busPIRone HCL 2.5 MG TABLET PO ×2 (09:03→21:03)
[2024-04-20] MEDS: ENOXAPARIN 40 MG/0.4 ML SYRINGE SUB-Q (09:04)
[2024-04-20] MEDS: busPIRone HCL 5 MG TABLET PO ×2 (09:04→21:03)
[2024-04-20] MEDS: PANTOPRAZOLE 40 MG TABLET PO (09:04)
--- NOTE | 2024-04-20 09:34 | PM.IMPN ---
Progress Note: A&P Assessment and Plan (1) Fall: Qualifiers: Encounter type: initial encounter Qualified Code(s): W19.XXXA - Unspecified fall, initial encounter Code(s): W19.XXXA - Unspecified fall, initial encounter Status: Acute (2) Fracture of ramus of right pubis: Qualifiers: Encounter type: initial encounter Fracture type: closed Qualified Code(s): S32.591A - Other specified fracture of right pubis, initial encounter for closed fracture Code(s): S32.591A - Other specified fracture of right pubis, initial encounter for closed fracture Status: Acute Assessment and Plan: 04/19/24: Awaiting Orthopedics consult Up to chair with assist. Awaiting PT and OT consult. 04/20 recommendations reviewed: Pubic rami fractures after a fall. The right superior and inferior rami are definitely fractured. The left may be fractured. The fractures are stable and can be treated conservatively. She may weight bear as tolerated with a walker. Mobilization will be painful and slow, certainly for the next 1-2 weeks. Some pain for up to 4-6 weeks is expected. The patient is interested in home discharge although this may not be feasible. Will see how she does with physical therapy. She may follow-up with me in the clinic in 4-6 weeks with x-rays. (3) Azotemia: Code(s): R79.89 - Other specified abnormal findings of blood chemistry Status: Acute Assessment and Plan: 04/19/24: Improving 20-->18 Monitor 04/20- 17 today-monitor (4) Hyperbilirubinemia: Code(s): E80.6 - Other disorders of bilirubin metabolism Status: Resolved Assessment and Plan: 04/19/24: Resolved with Bili this AM of 1.2. (5) Hypothyroidism: Qualifiers: Hypothyroidism type: unspecified Qualified Code(s): E03.9 - Hypothyroidism, unspecified Code(s): E03.9 - Hypothyroidism, unspecified Status: Chronic Assessment and Plan: Continue home Levothyroxine. (6) Asthma: Qualifiers: Asthma complication type: uncomplicated Asthma persistence: persistent Asthma severity: mild Qualified Code(s): J45.30 - Mild persistent asthma, uncomplicated Code(s): J45.909 - Unspecified asthma, uncomplicated Status: Chronic Assessment and Plan: Continue home medications Monitor Plan DVT prophylaxis: lovenox SQ Time Spent With Patient Time with patient: Greater than 35 minutes Subjective Date/time seen: 04/20/24 09:34 Interval history: This pt was examined at the bedside today since being admitted to the hospital for her pelvic fracture. She has controlled pain until she moves which makes it worse. No additional complaints, symptoms or concerns today. Ortho saw her yesterday- conservative tx- she wants to go home- has family to help. Will work with PT/OT- today- anticipate discharge if ok with ortho with home health/pain management Review of Systems Review of Systems: 12 systems were reviewed with pertinent positives and negatives per HPI. Except as documented in the HPI, all other systems were reviewed and are negative. All systems reviewed & are unremarkable except as noted in HPI and below Exam Narrative: Weight 57.5 kg BMI 21.8 Const: General: comfortable and no acute distress Other: No acute distress, well-developed well-nourished appears stated age HENMT: Mouth: Yes moist mucous membranes Other: Good dentition, dry mucous membranes, no oral pharyngeal erythema, large mildly elevated bruise to the central forehead with small central abrasion Eyes: General: appearance normal, both eyes and all related structures Sclera: sclerae normal Pupils: Equal, round and reactive pupils present Other: Pupils are equal and reactive, no scleral icterus, no pallor lens replacements present Neck: Neck: supple and no JVD Other: No JVD, no lymphadenopathy Resp: Effort & Inspection: normal res
[2024-04-20 11:15] VITALS: PULSE 88; RESP 20
[2024-04-20] MEDS: ALBUTEROL SULFATE (*SP) AEROSOL 1 PUFF 2 PUFF INHALATION (11:15)
[2024-04-20 14:00] VITALS: BP 108/58; PULSE 68; RESP 18; TEMP 37; O2SAT 93
[2024-04-20 20:00] VITALS: PULSE 72; RESP 20; O2SAT 96
[2024-04-20 20:10] VITALS: BP 120/60; PULSE 72; RESP 20; TEMP 37; O2SAT 96
[2024-04-20] MEDS: traZODone HCL 50 MG TABLET PO (21:03)
[2024-04-20] MEDS: MONTELUKAST SODIUM 10 MG TABLET PO (21:03)
[2024-04-20] MEDS: PRAVASTATIN SODIUM 20 MG TABLET PO (21:03)
[2024-04-20 22:00] VITALS: BP 121/59; PULSE 75; RESP 20; TEMP 37.2; O2SAT 93
[2024-04-21] VITALS (7 sets, daily range): BP systolic 107–127; BP diastolic 58–70; PULSE 65–83; RESP 16–20; TEMP 36.3–36.9; O2SAT 93–96
[2024-04-21] MEDS: oxyCODONE/ACETAMINOPHEN (*CRX) 10-325 MG TABLET 1 TAB PO ×2 (05:01→21:55)
[2024-04-21] MEDS: LEVOTHYROXINE SODIUM 50 MCG TABLET PO (05:01)
[2024-04-21] MEDS: ALBUTEROL SULFATE (*SP) AEROSOL 1 PUFF 2 PUFF INHALATION ×3 (08:30→21:04)
--- NOTE | 2024-04-21 09:28 | PM.IMPN ---
Progress Note: A&P Assessment and Plan (1) Fall: Qualifiers: Encounter type: initial encounter Qualified Code(s): W19.XXXA - Unspecified fall, initial encounter Code(s): W19.XXXA - Unspecified fall, initial encounter Status: Acute (2) Fracture of ramus of right pubis: Qualifiers: Encounter type: initial encounter Fracture type: closed Qualified Code(s): S32.591A - Other specified fracture of right pubis, initial encounter for closed fracture Code(s): S32.591A - Other specified fracture of right pubis, initial encounter for closed fracture Status: Acute Assessment and Plan: 04/19/24: Awaiting Orthopedics consult Up to chair with assist. Awaiting PT and OT consult. 04/20 recommendations reviewed: Pubic rami fractures after a fall. The right superior and inferior rami are definitely fractured. The left may be fractured. The fractures are stable and can be treated conservatively. She may weight bear as tolerated with a walker. Mobilization will be painful and slow, certainly for the next 1-2 weeks. Some pain for up to 4-6 weeks is expected. The patient is interested in home discharge although this may not be feasible. Will see how she does with physical therapy. She may follow-up with me in the clinic in 4-6 weeks with x-rays. 04/21 needs home health set up-anticipate discharge on monday. Continue working with PT/OT (3) Azotemia: Code(s): R79.89 - Other specified abnormal findings of blood chemistry Status: Acute Assessment and Plan: 04/19/24: Improving 20-->18 Monitor 04/20- 17 today-monitor (4) Hyperbilirubinemia: Code(s): E80.6 - Other disorders of bilirubin metabolism Status: Resolved Assessment and Plan: 04/19/24: Resolved with Bili this AM of 1.2. (5) Hypothyroidism: Qualifiers: Hypothyroidism type: unspecified Qualified Code(s): E03.9 - Hypothyroidism, unspecified Code(s): E03.9 - Hypothyroidism, unspecified Status: Chronic Assessment and Plan: Continue home Levothyroxine. (6) Asthma: Qualifiers: Asthma complication type: uncomplicated Asthma persistence: persistent Asthma severity: mild Qualified Code(s): J45.30 - Mild persistent asthma, uncomplicated Code(s): J45.909 - Unspecified asthma, uncomplicated Status: Chronic Assessment and Plan: Continue home medications Monitor Plan DVT prophylaxis: lovenox SQ Time Spent With Patient Time with patient: Greater than 35 minutes Subjective Date/time seen: 04/21/24 09:28 Interval history: This pt was examined at the bedside today since being admitted to the hospital for her pelvic fracture. She has controlled pain until she moves which makes it worse. No additional complaints, symptoms or concerns today. Ortho saw her yesterday- conservative tx- she wants to go home- has family to help. Will work with PT/OT- today- anticipate discharge if ok with ortho with home health/pain management. 04/21-working with pt.ot- does not require IV pain meds. Once home health is set up- anticipate discharge (monday) discussed bedside commode for home use- states that she has one already. Review of Systems Review of Systems: 12 systems were reviewed with pertinent positives and negatives per HPI. Except as documented in the HPI, all other systems were reviewed and are negative. All systems reviewed & are unremarkable except as noted in HPI and below Exam Narrative: Weight 57.5 kg BMI 21.8 Const: General: comfortable and no acute distress Other: No acute distress, well-developed well-nourished appears stated age HENMT: Mouth: Yes moist mucous membranes Other: Good dentition, dry mucous membranes, no oral pharyngeal erythema, large mildly elevated bruise to the central forehead with small central abrasion Eyes: General: appearance normal, both eyes and all related structures Sclera:
[2024-04-21] MEDS: ENOXAPARIN 40 MG/0.4 ML SYRINGE SUB-Q (09:40)
[2024-04-21] MEDS: busPIRone HCL 5 MG TABLET PO ×2 (09:40→20:53)
[2024-04-21] MEDS: busPIRone HCL 2.5 MG TABLET PO ×2 (09:40→20:53)
[2024-04-21] MEDS: PANTOPRAZOLE 40 MG TABLET PO (09:40)
[2024-04-21] MEDS: ACETAMINOPHEN 325 MG TABLET 650 MG PO (09:44)
[2024-04-21] MEDS: MONTELUKAST SODIUM 10 MG TABLET PO (20:54)
[2024-04-21] MEDS: PRAVASTATIN SODIUM 20 MG TABLET PO (20:54)
[2024-04-21] MEDS: traZODone HCL 50 MG TABLET PO (20:54)
[2024-04-22] MEDS: oxyCODONE/ACETAMINOPHEN (*CRX) 10-325 MG TABLET 1 TAB PO (04:34)
[2024-04-22] MEDS: LEVOTHYROXINE SODIUM 50 MCG TABLET PO (05:41)
[2024-04-22 06:00] VITALS: BP 112/60; PULSE 66; RESP 18; TEMP 36.8; O2SAT 95
--- NOTE | 2024-04-22 08:46 | PCOTNOTE ---
The patient treatment was not able to be completed. Patient wanted her pain pill first. Will plan to continue treatment per plan of care.
[2024-04-22] MEDS: oxyCODONE/ACETAMINOPHEN (*CRX) 5-325 MG TABLET 1 TABLET PO (08:50)
[2024-04-22] MEDS: busPIRone HCL 5 MG TABLET PO (08:51)
[2024-04-22] MEDS: PANTOPRAZOLE 40 MG TABLET PO (08:51)
[2024-04-22] MEDS: busPIRone HCL 2.5 MG TABLET PO (08:52)
[2024-04-22] MEDS: ENOXAPARIN 40 MG/0.4 ML SYRINGE SUB-Q (08:54)
[2024-04-22 09:15] LABS: Basophils Absolute Auto 0.1 K/mm3 (0.0-0.1); Basophils Percent Auto 0.6 % (0.2-1.2); Eosinophils Absolute Auto 0.5 K/mm3 (0-0.3); Eosinophils Percent Auto 5.3 % (0-4.4); Hematocrit 32.5 % (37.0-47.0); Hemoglobin 11.1 g/dL (12.0-15.0); Immature Granulocyte Absolute 0.04 K/mm3 (0.00-0.031); Immature Granulocyte Percent A 0.4 % (0-0.5); Lymphocytes Absolute Auto 2.15 K/mm3 (0.9-3.2); Lymphocytes Percent Auto 23.7 % (18.3-44.2); Mean Corpuscular HGB Conc 34.2 g/dl (32-36); Mean Corpuscular Hemoglobin 31.3 pg (26-34); Mean Corpuscular Volume 91.5 fl (80-100); Mean Platelet Volume 10.1 fl (7.4-10.4); Monocytes Absolute Auto 0.7 K/mm3 (0.1-0.6); Monocytes Percent Auto 7.6 % (2.6-8.5); Neutrophils Absolute Auto 5.7 K/mm3 (1.3-6.7); Neutrophils Percent Auto 62.4 % (45.5-73.1); Platelet Count Result 199 k/mm3 (150-375); Red Blood Count 3.55 M/mm3 (4.2-5.4); White Blood Count 9.1 K/mm3 (4.5-10.0)
[2024-04-22 09:38] LABS: Alanine Aminotransferase 35 U/L (6-35); Albumin Level 3.6 g/dL (3.5-5.1); Alkaline Phosphatase 78 U/L (38-126); Anion Gap 8 mmol/L (4-12); Aspartate Amino Transferase 46 U/L (14-36); Bilirubin,Total 0.9 mg/dL (0.2-1.3); Blood Urea Nitrogen 11 mg/dL (7-17); Calcium 8.7 mg/dL (8.4-10.2); Carbon Dioxide 29 mmol/L (22-30); Chloride 101 mmol/L (98-107); Estimated CRCL calculation 55 ml/min; Estimated Glomerular Filt Rate > 60; Glucose 110 mg/dL (65-110); Potassium 3.9 mmol/L (3.4-5.0); Sodium 138 mmol/L (137-145)
--- NOTE | 2024-04-22 09:54 | PM.DS ---
DS: Admitting Diagnosis Discharge Date 04/22/2024 0845 Admitting Diagnosis Pelvic fracture DS: Discharge Diagnosis Discharge Diagnosis (1) Fall: Qualifiers: Encounter type: initial encounter Qualified Code(s): W19.XXXA - Unspecified fall, initial encounter Code(s): W19.XXXA - Unspecified fall, initial encounter Status: Acute Assessment and Plan: Fall at home Currently stable PT/OT worked with the patient Will need a wheeled walked at home (2) Fracture of ramus of right pubis: Qualifiers: Encounter type: initial encounter Fracture type: closed Qualified Code(s): S32.591A - Other specified fracture of right pubis, initial encounter for closed fracture Code(s): S32.591A - Other specified fracture of right pubis, initial encounter for closed fracture Status: Acute Assessment and Plan: 04/19/24: Awaiting Orthopedics consult Up to chair with assist. Awaiting PT and OT consult. 04/20 recommendations reviewed: Pubic rami fractures after a fall. The right superior and inferior rami are definitely fractured. The left may be fractured. The fractures are stable and can be treated conservatively. She may weight bear as tolerated with a walker. Mobilization will be painful and slow, certainly for the next 1-2 weeks. Some pain for up to 4-6 weeks is expected. The patient is interested in home discharge although this may not be feasible. Will see how she does with physical therapy. She may follow-up with me in the clinic in 4-6 weeks with x-rays. 04/21 needs home health set up-anticipate discharge on monday. Continue working with PT/OT (3) Azotemia: Code(s): R79.89 - Other specified abnormal findings of blood chemistry Status: Acute Assessment and Plan: 04/19/24: Improving 20-->18 Monitor 04/20- 17 today-monitor (4) Hyperbilirubinemia: Code(s): E80.6 - Other disorders of bilirubin metabolism Status: Resolved Assessment and Plan: 04/19/24: Resolved with Bili this AM of 1.2. (5) Hypothyroidism: Qualifiers: Hypothyroidism type: unspecified Qualified Code(s): E03.9 - Hypothyroidism, unspecified Code(s): E03.9 - Hypothyroidism, unspecified Status: Chronic Assessment and Plan: Continue home Levothyroxine. (6) Asthma: Qualifiers: Asthma complication type: uncomplicated Asthma persistence: persistent Asthma severity: mild Qualified Code(s): J45.30 - Mild persistent asthma, uncomplicated Code(s): J45.909 - Unspecified asthma, uncomplicated Status: Chronic Assessment and Plan: Continue home medications Monitor Plan DVT prophylaxis: lovenox SQ DS: Summary Hospital Course Hospital Course: Patient is a 73-year-old female with past medical history of asthma, hypothyroidism, osteoporosis, GERD, anxiety who presented the ED with complaints of a fall. Patient got out of the bed too fast was not fully awake when she fell. Upon arrival to the ED was noted that the patient does have a pelvic fracture. PT and OT were consulted patient has been doing well with a walker. Head CT showed no acute findings. Hip and pelvis x-ray showed acute fractures of the right and inferior pubic rami. Pain medications have been invited. Currently patient is still experiencing some pain which she rates at 8/10. She denies any current chest pain, shortness a breath, nausea, vomiting, diarrhea constipation. Home health has been set up with the patient and the patient will need a rolling walker at home. Currently patient is doing okay she is stable for discharge for labs and vital signs. Patient will follow-up with her primary care provider and her orthopedic surgeon as indicated. Status at Discharge Functional status at discharge: uses cane/walker Overall status at discharge: patient is progressing back to baseline Time Spent with Patient Time attestation: Total time spent
[2024-04-22] MEDS: ESCITALOPRAM OXALATE 10 MG TABLET PO (10:41)
[2024-04-22] MEDS: KETOROLAC 10 MG TABLET 15 MG PO (10:42)
--- NOTE | 2024-04-22 12:13 | PM.PNORT ---
Progress Note: A&P Assessment and Plan (1) Fracture of ramus of right pubis: Qualifiers: Encounter type: initial encounter Fracture type: closed Qualified Code(s): S32.591A - Other specified fracture of right pubis, initial encounter for closed fracture Code(s): S32.591A - Other specified fracture of right pubis, initial encounter for closed fracture Status: Acute Assessment and Plan: Patient progressing well. Able to walk with a walker. Patient is discharging home today with home health. Pubic rami fractures after a fall. The right superior and inferior rami are definitely fractured. The left may be fractured. The fractures are stable and can be treated conservatively. She may weight bear as tolerated with a walker. Mobilization will be painful and slow, certainly for the next 1-2 weeks. Some pain for up to 4-6 weeks is expected. Follow up in clinic in 4-6 weeks with x-rays. Ortho instructions: D/C home with home health. Follow up in office in 4-6 weeks with an xray. Please call [facility] at for appointment. PT: weight bearing as tolerated with a walker. DVT prophylaxis: ASA 81 mg BID. Pain medication: Oxycodone Subjective Subjective Date/Time Seen: 04/22/24 12:13 Principal diagnosis: pelvic fracture. Interval history: Patient resting comfortably. Sitting up in bed. Complains of pain in the hips. Planning on going home today. Review of Systems Review of Systems: All systems reviewed & are unremarkable except as noted in HPI and below Exam Narrative: 73 y/o female. Resting comfortably. No acute distress. Pain at the pelvic region. Pain with pelvic compression at the pubic symphysis. No tenderness or pain in the posterior sacrum or sacroiliac area. No lower extremity deformity. Distal neurovascularly intact. Pain with motion. Objective Data Vital Signs Vital Signs: Vital Signs - 24 hr 04/21/24 14:00 04/21/24 14:53 04/21/24 14:53 Temperature 97.8 F Pulse Rate 78 83 Respiratory Rate 16 20 Blood Pressure 113/58 L Pulse Oximetry 94 94 Oxygen Delivery Room Air Fraction of Inspired Oxygen 21 04/21/24 21:06 04/21/24 20:00 04/21/24 22:00 Temperature 98.4 F Pulse Rate 83 80 Respiratory Rate 20 18 Blood Pressure 127/70 Pulse Oximetry 94 94 96 Oxygen Delivery Room Air Room Air Fraction of Inspired Oxygen 21 04/22/24 06:00 04/22/24 09:00 Temperature 98.3 F Pulse Rate 66 Respiratory Rate 18 Blood Pressure 112/60 Pulse Oximetry 95 Oxygen Delivery Room Air Fraction of Inspired Oxygen Intake/Output Intake/Output: Intake & Output 04/19/24 04/20/24 04/21/24 04/22/24 23:59 23:59 23:59 23:59 Intake Total 960 1740 920 120 Output Total 200 1550 4250 400 Balance 760 321 -[phone] -023 Meds/Results Medications: Active Medications Generic Name Dose Route Start Last Admin Trade Name Freq PRN Reason Stop Dose Admin Acetaminophen 650 mg 04/18/24 16:17 04/21/24 09:44 Acetaminophen 325 Mg Tablet PO 650 mg Q4H PRN Administration Mild Pain (1-3) or Fever Albuterol 2 puff 04/18/24 22:06 04/21/24 21:04 Albuterol Sulfate (*Sp) Aerosol 1 Puff INHALATION 2 puff QID PRN Administration Shortness Of Breath Or Wheezing Buspirone HCl 5 mg 04/18/24 22:20 04/22/24 08:51 Buspirone Hcl 5 Mg Tablet PO 5 mg Q12HR JENNIFER Administration Buspirone HCl 2.5 mg 04/18/24 22:20 04/22/24 08:52 Buspirone Hcl 2.5 Mg Tablet PO 2.5 mg Q12HR JENNIFER Administration Calcium Carbonate 200 mg 04/19/24 11:04 Calcium Carbonate (Tums) 500 Mg (200 Mg Elemental) PO Q6H PRN Indigestion Docusate Sodium 100 mg 04/19/24 11:04 Docusate Sodium 100 Mg Capsule PO Q12H PRN Constipation Enoxaparin Sodium 40 mg 04/19/24 09:00 04/22/24 08:54 Enoxaparin 40 Mg/0.4 Ml Syringe SUB-Q 40 mg DAILY JENNIFER Administration Escitalopram Oxalate 10 mg 04/22/24 10:30
== END 2024-04-22 13:17 | disposition home health service (06) | DRG 536 ==
LOC: ANHED 14:23 → ANH3MEDSUR 17:20 → ANH2MED 17:43
PROVIDERS: Internal Medicine; Nurse Practitioner Adult Health; Admitting Provider Family Medicine; Emergency Provider Student in an Organized Health Care Education/Training Program; PCP Nurse Practitioner Family; Visit Provider Nurse Practitioner
DX: S32.591A Other specified fracture of right pubis, initial encounter for closed fracture (principal); J45.909 Unspecified asthma, uncomplicated; K21.9 Gastro-esophageal reflux disease without esophagitis; E78.5 Hyperlipidemia, unspecified; E03.9 Hypothyroidism, unspecified; F41.9 Anxiety disorder, unspecified; W19.XXXA Unspecified fall, initial encounter; M81.0 Age-related osteoporosis without current pathological fracture; R79.89 Other specified abnormal findings of blood chemistry
CPT/HCPCS: 36415; 70450; 73502; 80053; 81001; 85025; 85027; 85055; 85610; 85730; 87086; 87088; 94640; 96372; 96374; 96376; 97110; 97116; 97161; 97165; 97530; 97535; 99285; A9270; G0378; J1650; J2270; J7030

== ENCOUNTER 2024-06-12 12:33 | Outpatient (CLI) | payer MEDICARE, SELFPAY ==
--- NOTE | ~2024-06-12 | XR_ITS ---
XR hip BI 2V w AP pelvis Ordering provider: NENO Denis History: . S32.591A - Other specified fracture of right pubis, initi... . Comparison: None. FINDINGS: BONES: No acute fracture or dislocation. Old healed fractures are seen in the left inferior pubic liv us and right pubic bone. Postoperative changes are seen in both femoral neck. Sclerotic changes are s een in the left side of the sacrum most likely due to old healed fracture. HIP JOINT SPACES: Normal. SACROILIAC JOINT SPACES/LUMBAR SPINE: The sacroiliac joint spaces are normal. Mild degenerative schwartz es of the visualized lower lumbar spine. PUBIC SYMPHYSIS: Normal. SOFT TISSUES: Normal. IMPRESSION: No acute osseous abnormality of the bilateral hips and pelvis. Postoperative changes in both femoral neck. Old healed fractures in the left inferior pubic ramus, right pubic bone and in the left sacrum. Reviewed, dictated and finalized at location A.
== END 2024-06-12 12:34 | disposition home or self-care (01) ==
PROVIDERS: PCP Family Medicine; Visit Provider Physician Assistant Surgical
DX: S32.591A Other specified fracture of right pubis, initial encounter for closed fracture (principal); X58.XXXA Exposure to other specified factors, initial encounter
CPT/HCPCS: 73521

== ENCOUNTER 2025-04-08 15:59 | Outpatient (CLI) | payer MEDICARE, SELFPAY ==
--- NOTE | ~2025-04-08 | MM_ITS ---
EXAMINATION: MM screening [facility] BI w grao HISTORY: Screening TECHNIQUE: Craniocaudal and mediolateral oblique 3-D tomosynthesis images were obtained and synthetic 2-D images were generated. CAD analysis was submitted and interpreted. COMPARISON: Comparison to multiple prior studies sequentially, with oldest reviewed study dated 06/17/2016. BREAST PARENCHYMAL COMPOSITION: There are scattered areas of fibroglandular density. FINDINGS: There is no evidence of suspicious mass, calcification, or architectural distortion to suggest malignancy in either breast. Scattered benign-appearing calcifications are present. IMPRESSION: 1. No mammographic evidence of malignancy. 2. Recommend routine screening mammography in one year. BI-RADS Category 2: Benign finding(s). Reviewed, dictated and finalized at location B.
--- OUTSIDE RECORDS SUMMARY | 2025-04-08 16:02 | XMS_ITS | Clinical Summary ---
Author Organization [facility] Address [address], [facility] [address] [place] [address] Phone Care Team Providers Care Neuro Psych Sales Specialist Name Role Phone Mic Hartmann DO Unavailable [phone] Nanci Leonard PRODUCTION CONTROL PEGBOARD CLERK, LEAD SHOP OPERATOR Primary Care Pro vider Allergies No known active allergies Medications ALPRAZolam (XANAX) 0.5 MG Tablet 0 7 Active levothyroxine (SYNTHROID) 25 MCG Tablet Take 25 mcg by mouth daily. Active loratadine (CLARITIN) 10 MG Tablet Take 10 mg by mouth daily. Active montelukast (SINGULAIR) 10 MG Tablet Take 10 mg by mouth every evening. Active Multiple Vitamins-Minera ls (MULTIVITAMIN PO) Take by mouth. Activ e zolpidem (AMBIEN) 5 MG Tablet Take 5 mg by mouth nightly as needed. Active ALBUTEROL SULFATE HFA IN take by inhalation. Active albuterol (PROAIR HFA) 108 (90 Base) MCG/ACT Aerosol Solution take 2 Puffs by inhalation every 4 hours as needed for Wheezing. Active OMEPRAZOLE PO Take by mouth. A ctive FLUoxetine (PROzac) 20 MG Capsule Take 20 mg by mouth daily. Active pravastatin (PRAVACHOL) 20 MG Tablet TAKE 1 TABLET BY MOUTH ONCE DAILY 1 Active budesonide-form oterol fumarate (SYMBICORT) 160-4.5 MCG/ACT Aerosol INHALE 2 PUFFS BY MOUTH TWICE DAILY 1 Active Active Problems Problem Noted Date Diagnosed Date Esophageal dysphagia 01/27/2021 Immunizations Immunization Administration Dates Next Due Influenza, Injectable, Mdck, Preservative Free 0 08/15/2013 Influenza, Injectable, Quadrivalent 06/04/2015 Influenza, Seasonal, Injectable, Undefined 06/12 Pneumococcal Vaccine - 13 Valent 01/01/2010 Pneumococcal Vaccine Adult - 23 Valent 6 Zoster Vaccine, live 02/28/2012 Family History Medical History Relation Name Comments Other-comment Father ALS Heart Disease Mother Relation Name Status Comments Father Mother Social History Tobacco Use Types Packs/Day Years Used Date Smoking Tobacco: Never Smokeless Tobacco: Never Tobacco Cessation:Counseling Given: No Alcohol Use Standard Drinks/Week Comments Yes 0 (1 standard drink = 0.6 oz pur e alcohol) social Sexually Active Control Partners Comments Not Currently Comments No Sex and Gender Information Value Date Recorded Sex Assigned at Not on file Legal Sex Female 11:42 PM CDT Gender Identity Not on file Sexual Orientation Not on file Last Filed Vital Signs Vital Sign Reading Time Taken Comments Blood Pressure 112/62 01/27/2021 2:19 PM CDT Pulse 72 01/27/2021 2:19 PM CDT Temperature 36.7 C (98 F) 01/27/2021 2:19 PM CDT Respiratory Rate 20 01/27/2021 2:19 PM CDT Oxygen Saturation 97% 01/27/2021 2:19 PM CDT Inhaled Oxygen Concentration - - Weight 68.5 kg (151 lb) 01/27/2021 2:19 PM CDT Height 160 cm (5' 3) 01/27/2021 2:19 PM CDT Body Mass Index 26.75 01/27/2021 2:19 PM CDT Plan of Treatment Health Maintenance Due Date Last Done Comments Hepatitis C Virus (HCV) Screening 1950 TdaP Immunization 1950 Cologuard 1997 Immunochemical Fecal Occult Blood 1997 Zoster Immunization (2 of 3) 04/24/2012 02/28/2012 Pneumococcal Immunization (5 0+ years) (3 of 3 - PCV20 or PCV21) 09/10/2020 09/10/2015, 01/01/2010 SARS-COV-2 Immunization (1 - season) 2024 Influenza Immunization (#1) 04/14/202505/15, 08/15/2013, 06/12/2012 Respiratory Syncytial Virus (RSV) Immunization (Adult) (1 - 1-dose 75+ series) 11/19/2027 Colonoscopy 12/08/2027 12/07/2017 Colorectal Cancer Screening 12/08/2027 Pneumococcal Immunization Combined Discontinued 09/10/2015, 01/01/2010 Hepatitis B Immunization Aged Out No longer eligible based on patient's age to complete this topic Human Papillomavirus (HPV) Immunization Aged Out No longer eligible based on patient's age to complete this topic Meningococcal Immunization (ACWY) Aged Out No longer eligible based on patient's age to complete this topic Rotavirus Immunization Aged Out No lo nger eligible based on patient's age to complete this topic Procedures Procedure Name Priority Date/Time Associated Diagnosis Comments COLONOSCOPY Routine 12/07/2017 from Last 3 Months or Most Recently Relevant to Health Maintenance Results * COLONOSCOPY (12/07/2017) Mic Hartmann DO PROCEDURE/MINOR SURGICAL ORDERA BLES Final Result from Last 3 Months or Most Recently Relevant to Health Maintenance Insurance MEDICARE [place]ICAID [place] Care Teams Neuro Psych Sales Specialist Relationship Specialty Start Date End Date Nanci Leonard, PRODUCTION CONTROL PEGBOARD CLERK, LEAD SHOP OPERATOR [address] [place] [address] PCP - General Certified Nurse Practitioner 01/27/21 Mic Hartmann DO Gastroenterology 08/25/17
--- OUTSIDE RECORDS SUMMARY | 2025-04-08 16:02 | XMS_ITS | Continuity of Care Document ---
Author Organization [employer] Address [address] [place] [address] [address] [address] Insurance Providers Payer Plan Claims Address Claims Phone Policy Number Group Number Relation Employer Guarantor Name Guarantor Guarantor Address Guarantor Phone [employer] [address], [place] [address] tel:[phone] [place] [address] [id number] Mitchell Peralta [place] 1950 [facility] [place] [address] [employer] [facility] [id number] [facility] Kathryn [place] [address] [facility] [place] [address] [employer] are [employer] [id number] Mitchell Peralta [place] 1950 [facility] [place] [address] Problems Unknown Problems Results No Results Allergies, adverse reactions, alerts No known allergies and adverse reactions Medications Medication Instructions Route Dosage Frequency Start Date Stop Date Indications Status Loratadine 10 mg tablet bottle 300 {VIAL} T1T PO d [.DISCONTINUE MONTELUKAST] TAKE ONE TABLET BY MOUTH DAILY .DISCONTINUE MONTELUKAST 025 Active Levoxyl 50 mcg tablet bottle 1000 {VIAL] T1T PO D {VIAL] TAKE ONE TABLET BY MOUTH DAILY 025 Active Pravastatin sodium 20 mg tab bottle 1000 {VIAL] T1T PO D QPM {VIAL] TAKE ONE TABLET BY MOUTH DAILY EVERY EVENING [address] 40 mg tab bottle 1000 {VIAL] T1T PO D {VIAL] TAKE ONE TABLET BY MOUTH DAILY 025 Active Trazodone 50 mg tablet bottle 1000 {VIAL} T1T PO D TAKE ONE TABLET BY MOUTH DAILY 025 Active Vital Signs No vital signs reported Social History No smoking Hx information available
--- OUTSIDE RECORDS SUMMARY | 2025-04-08 16:02 | XMS_ITS | Patient Health Record ---
Author Organization [facility] Address [address] [place] [address] Care Team Providers Care Application Software Developer Name Role Phone Terry Ball Unavailable [phone] Reason For Referral No Information Medications Medication SIG (Take, Route, Frequency, Duration) Notes Start Date End Date Status Zolpidem Tartrate 5 MG Tablet Oral 12/13/2018 Active ALPRAZOLAM .5 MG TABS *Reorder from [employer] for eRx and Interaction Alerts* 12/13/2018 Active FLUOXETINE HCL 40 MG CAPS *Reorder from [employer] for eRx and Interaction Alerts* 12/13/2018 Active Belsomra 20 mg Tablet Oral 12/13/2018 Active Lunesta 3 MG Tablet Oral 12/13/2018 Active ALPRAZolam 0.5 MG Tablet Oral 12/13/2018 Active FLUoxetine HCl 40 MG Capsule Oral 12/13/2018 Active Social History Social History Additional Details Category Social Info Options Details Migrated Social History Migrated Social History Alcohol Intake: Occasional 06/16/2020,Tobacco Years: Never smoker 06/16/2020 Plan Of Treatment No Information Insurance Providers Payer Name Payer Address Payer Phone Subscriber Number Group Number Insured Name Patient Relationship to Insured Coverage Start Date Coverage End Date Medicare-I l Medicare [address] [place] [phone] [id number] STELLA POPE Self - patient is the insured
--- OUTSIDE RECORDS SUMMARY | 2025-04-08 16:02 | XMS_ITS ---
Author Organization [facility] Care Team Providers Care Buckle Attaching Machine Operator Name Role Phone LARISSA MORRIS Unavailable Unavailable Allergies and adverse reactions No Known Allergies Care Team Name Role Address Phone Organization Dates LARISSA MORRIS PCP [address] [place], [address], [place] (Office): : [facility] 03/04/2021 - 03/22/2021 Immunizations Immunization Status Vaccine Details Vaccine Code CodeSystem Date Notes TB 2 Step Mantoux Skin Test completed tuberculin skin test; purified protein derivative solution, intradermal lotNumber: [id number] expiry: 10/05/2021 Mfg: PAR [employer] Given 0.1 ml Left Forearm intradermally Step 2 of Multi-step with next step required 96 CVX created date: 03/20/2021 consent date: 03/19/2021 administer ed date: 03/20/2021 given L forearm TB 2 Step Mantoux Skin Test completed tuberculin skin test; purified protein derivative solution, intradermal lotNumber: [id number] expiry: 10/05/2021 Mfg: PAR Given 0.1 ml Left Forearm intradermally Step 1 of Multi-step with next step required 96 CVX created date: 03/10/2021 consent date: 03/09/2021 administer ed date: 03/10/2021 Educated by lucille martínez on 03/09/2021 Mental Status Section Date Assessment Total Score Description 03/22/2021 BIMS 15 cognitively int act CAM 0 No delirium ind icated PHQ-9 00 03/09/2021 BIMS 15 cognitively int act CAM 0 No delirium ind icated PHQ-9 01 minimal depress ion Problems Problem # Description Date of onset Resolved Date Code CodeSystem Concern Status 1 MODERATE PERSISTENT ASTHMA, UNCOMPLICATED [address] active 2 DYSPHAGIA, PHARYNGOESOPHAGEAL PHASE [address] active 3 ANXIETY DISORDER DUE TO KNOWN PHYSIOLOGICAL CONDITION [address] active 4 DIFFICULTY IN WALKIN G, NOT ELSEWHERE CLASSIFIED [address] active 5 DISPLACED FRACTURE O F BASE OF NECK OF LEFT FEMUR, SUBSEQUENT ENCOUNTER FOR CLOSED FRACTURE WITH ROUTINE HEALING [address] active 6 FRACTURE OF UNSPECIFIED PART OF NECK OF LEFT FEMUR, SUBSEQUENT ENCOUNTER FOR CLOSED FRACTURE WITH ROUTINE HEALING 1 03/04/[address] completed 7 HYPERLIPIDEMIA, UNSPECIFIED [address] active 8 HYPOTHYROIDISM, UNSPECIFIED [address] active 9 MILD INTERMITTENT ASTHMA, UNCOMPLICATED [address] active 10 MILD PROTEIN-CALORIE MALNUTRITION [address] active 11 OPEN BITE, LEFT LOWE R LEG, SUBSEQUENT ENCOUNTER [address] active 12 OTHER INSOMNIA [address] active 13 UNSTEADINESS ON FEET [address] active Reason for Referral No Reasons for Referral Entered Social History Social History Observation Description Start Date End Date Code Code System Current Smoking Status Tobacco smoking consumption unknown 425149827 SNOMED CT Sex Assigned At Female 1950 52078-6 [facility] Gender Identity Vital Signs Code Code System Vitals Name Values and Units Timing Information 9279-1 [facility] Respiratory Rate Value=18.0 Units=/m in 03/22/2021 8462-4 [facility] Blood Pressure-Diastolic Value=63 Un its=mmHg 03/22/2021 8480-6 [facility] Blood Pressure-Systolic Jbrtl=076 Un its=mmHg 03/22/2021 8310-5 [facility] Body Temperature Value=97.7 Units= F 03/22/2021 8867-4 [facility] Heart rate Value=68.0 Units=/min 04/2021 04115-7 [facility] O2 % BldC Oximetry Value=97.0 Units= % 03/22/2021 24172-7 [facility] Pain Level Value=0.0 03/15/2021 74212-5 [facility] Weight Fsbfo=848.0 Units=Lbs 8302-2 [facility] Height Value=64.0 Units=Inches 03/06/2021
== END 2025-04-08 16:00 | disposition home or self-care (01) ==
PROVIDERS: PCP Family Medicine; Visit Provider Family Medicine
DX: Z12.31 Encounter for screening mammogram for malignant neoplasm of breast (principal)
CPT/HCPCS: 77063; 77067